=== PATIENT | male | born 1940 | race American Indian/Alaskan Native ===

== ENCOUNTER 2018-10-19 03:02 | Inpatient (IN) | payer MEDICARE ==
[2018-10-19 04:23] LABS: Basophils % (Auto) 0.2 % (0.0-1.8); Hematocrit 33.9 % (35.5-45.6); Hemoglobin 11.3 gm/dl (11.8-15.2); Lymphocytes # (Auto) 0.6 K/mm3 (1.2-5.4); Lymphocytes % (Auto) 10.6 % (13.4-35.0); Mean Corpuscular HGB Conc 33 % (32-34); Mean Corpuscular Volume 94 fl (84-94); Monocytes # (Auto) 0.6 K/mm3 (0.0-0.8); Monocytes % (Auto) 11.7 % (0.0-7.3); Platelet Count 156 K/mm3 (140-440); Red Cell Distribution Width 13.6 % (13.2-15.2)
[2018-10-19 04:32] LABS: INR 1.12 (0.87-1.13)
[2018-10-19 04:36] LABS: Creatine Kinase MB 15.7 ng/mL (0.0-4.0)
[2018-10-19 04:38] LABS: Alanine Aminotransferase 77 units/L (7-56); Albumin 3.3 g/dL (3.9-5); BUN/Creatinine Ratio 29; Blood Urea Nitrogen 35 mg/dL (9-20); Calcium 8.4 mg/dL (8.4-10.2); Hemolysis Index 5
--- NOTE | 2018-10-19 04:42 | Cat Scan Report ---
FINAL REPORT EXAM: CT HEAD/BRAIN WO CON HISTORY: falls x 3 days TECHNIQUE: CT imaging is acquired through the brain without contrast. Transaxial reformations are provided. PRIORS: None. FINDINGS: Ventricles and CSF spaces are proportionately enlarged, consistent with parenchymal atrophy. Scattere d deep and subcortical white matter hypodense foci are confluent in some areas and are compatible wit h microvascular angiopathy. No acute intracranial hemorrhage or mass effect. No skull fracture. No significant abnormality within the imaged paranasal sinuses or mastoid air cell s. IMPRESSION: No acute intracranial abnormality. 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
[2018-10-19] MEDS ORDERED: ASPIRIN PO ONE (04:53)
--- NOTE | 2018-10-19 04:54 | Emergency Department Report ---
ED General Adult HPI - General Chief complaint: Fall Stated complaint: FALL Time Seen by Provider: 10/19/18 04:52 Source: patient, family, EMS Mode of arrival: Stretcher Limitations: Physical Limitation - History of Present Illness Initial comments: Patient's family said the patient has been falling frequently in the last few days. He fell this evening again and they had to call 911 to bring him to the emergency room. -: Sudden Improves with: none Worsens with: none Associated Symptoms: confusion Treatments Prior to Arrival: none - Related Data Allergies Allergy/AdvReac Type Severity Reaction Status Date / Time No Known Allergies Allergy Unverified 10/19/18 03:53 ED Review of Systems ROS: Stated complaint: FALL Other details as noted in HPI Comment: All other systems reviewed and negative Constitutional: denies: chills, fever Eyes: denies: eye pain, eye discharge, vision change ENT: denies: ear pain, throat pain Respiratory: denies: cough, shortness of breath, wheezing Cardiovascular: denies: chest pain, palpitations Endocrine: no symptoms reported Gastrointestinal: denies: abdominal pain, nausea, diarrhea Genitourinary: denies: urgency, dysuria Musculoskeletal: denies: back pain, joint swelling, arthralgia Skin: denies: rash, lesions Neurological: denies: headache, weakness, paresthesias Psychiatric: denies: anxiety, depression Hematological/Lymphatic: denies: easy bleeding, easy bruising ED Past Medical Hx - Past Medical History Previous Medical History?: Yes Hx COPD: Yes Additional medical history: prostate cancer - Surgical History Past Surgical History?: No - Social History Smoking Status: Former Smoker Substance Use Type: None ED Physical Exam - General Limitations: Physical Limitation General appearance: alert, in no apparent distress - Head Head exam: Present: atraumatic, normocephalic - Eye Eye exam: Present: normal appearance - ENT ENT exam: Present: mucous membranes moist - Neck Neck exam: Present: normal inspection - Respiratory Respiratory exam: Present: normal lung sounds bilaterally. Absent: respiratory distress - Cardiovascular Cardiovascular Exam: Present: regular rate, normal rhythm. Absent: systolic murmur, diastolic murmur, rubs, gallop - GI/Abdominal GI/Abdominal exam: Present: soft, normal bowel sounds - Rectal Rectal exam: Present: deferred - Extremities Exam Extremities exam: Present: normal inspection, pedal edema - Back Exam Back exam: Present: normal inspection - Neurological Exam Neurological exam: Present: alert, oriented X3, CN II-XII intact - Psychiatric Psychiatric exam: Present: normal affect, normal mood - Skin Skin exam: Present: warm, dry, intact, normal color. Absent: rash ED Course Vital Signs 10/19/18 10/19/18 10/19/18 03:45 04:00 04:45 Temperature 95.9 F L Pulse Rate 96 H 109 H 103 H Respiratory 32 H 25 H 10 L Rate Blood Pressure 108/75 108/75 135/83 O2 Sat by Pulse 89 99 Oximetry 10/19/18 10/19/18 05:00 05:31 Temperature Pulse Rate 99 H 87 Respiratory 15 20 Rate Blood Pressure 128/80 132/81 O2 Sat by Pulse 98 96 Oximetry - Consultations Consultation #1: 10/19/18 06:09 Dr Sarah Castellon to admit. ED Medical Decision Making - Lab Data Result diagrams: 10/19/18 04:34 10/19/18 04:34 Lab Results 10/19/18 10/19/18 10/19/18 Range/Units 04:34 04:34 04:34 WBC 5.4 (4.5-11.0) K/mm3 RBC 3.60 L (3.65-5.03) M/mm3 Hgb 11.3 L (11.8-15.2) gm/dl Hct 33.9 L (35.5-45.6) % MCV 94 (84-94) fl MCH 31 (28-32) pg MCHC 33 (32-34) % RDW 13.6 (13.2-15.2) % Plt Count 156 (140-440) K/mm3 Lymph % (Auto) 10.6 L (13.4-35.0) % [place] % (Auto) 11.7 H (0.0-7.3) % Eos % (Auto) 0.0 (0.0-4.3) % Baso % (Auto) 0.2 (0.0-1.8) % Lymph # 0.6 L (1.2-5.4) K/mm3 [place] # 0.6 (0.0-0.8) K/mm3 Eos # 0.0 (0.0-0.4) K/mm3 Baso # 0.0 (0.0-0.1) K/mm3 Seg Neutrophils % 77.5 H (40.0-70.0) % Seg Neutrophils # 4.2 (1.8-7.7) K/mm3 PT 14.8 (12.2-14.9) Sec. INR 1.12 (0.87-1.13) APTT 23.0 L (24.2-36.6) Sec. Sodium 126 L (137-145) mmol/L Potassium 4.5 (3.6-5.0) mmol/L Chloride 92.1 L (98-107) mmol/L Carbon Dioxide 20 L (22-30) mmol/L Anion Gap 18 mmol/L BUN 35 H (9-20) mg/dL Creatinine 1.2 (0.8-1.5) mg/dL Estimated GFR > 60 ml/min BUN/Creatinine Ratio 29 % Glucose 95 (75-100) mg/dL Calcium 8.4 (8.4-10.2) mg/dL Total Bilirubin 0.90 (0.1-1.2) mg/dL AST 67 H (5-40) units/L ALT 77 H (7-56) units/L Alkaline Phosphatase 58 (35-129) units/L Total Creatine Kinase 1300 H (55-170) units/L CK-MB (CK-2) 15.7 H (0.0-4.0) ng/mL CK-MB (CK-2) Rel Index 1.2 (0-4) Troponin T 0.175 H* (0.00-0.029) ng/mL Total Protein 5.7 L (6.3-8.2) g/dL Albumin 3.3 L (3.9-5) g/dL Albumin/Globulin Ratio 1.4 % Triglycerides 85 (2-149) mg/dL Cholesterol 156 (50-199) mg/dL LDL Cholesterol Direct 94 (50-130) mg/dL HDL Cholesterol 60 H (40-59) mg/dL Cholesterol/HDL Ratio 2.60 % Urine Color (Yellow) Urine Turbidity (Clear) Urine pH (5.0-7.0) Ur Specific [place] (1.003-1.030) Urine Protein (Negative) mg/dL Urine Glucose (UA) (Negative) mg/dL Urine Ketones (Negative) mg/dL Urine Blood (Negative) Urine Nitrite (Negative) Urine Bilirubin (Negative) Urine Urobilinogen (<2.0) mg/dL Ur Leukocyte Esterase (Negative) Urine WBC (Auto) (0.0-6.0) /HPF Urine RBC (Auto) (0.0-6.0) /HPF Urine Mucus /HPF Urine Opiates Screen Urine Methadone Screen Ur Barbiturates Screen Ur Phencyclidine Scrn Ur Amphetamines Screen U Benzodiazepines Scrn Urine Cocaine Screen U Marijuana (THC) Screen Drugs of Abuse Note 10/19/18 10/19/18 Range/Units Unknown Unknown WBC (4.5-11.0) K/mm3 RBC (3.65-5.03) M/mm3 Hgb (11.8-15.2) gm/dl Hct (35.5-45.6) % MCV (84-94) fl MCH (28-32) pg MCHC (32-34) % RDW (13.2-15.2) % Plt Count (140-440) K/mm3 Lymph % (Auto) (13.4-35.0) % [place] % (Auto) (0.0-7.3) % Eos % (Auto) (0.0-4.3) % Baso % (Auto) (0.0-1.8) % Lymph # (1.2-5.4) K/mm3 [place] # (0.0-0.8) K/mm3 Eos # (0.0-0.4) K/mm3 Baso # (0.0-0.1) K/mm3 Seg Neutrophils % (40.0-70.0) % Seg Neutrophils # (1.8-7.7) K/mm3 PT (12.2-14.9) Sec. INR (0.87-1.13) APTT (24.2-36.6) Sec. Sodium (137-145) mmol/L Potassium (3.6-5.0) mmol/L Chloride (98-107) mmol/L Carbon Dioxide (22-30) mmol/L Anion Gap mmol/L BUN (9-20) mg/dL Creatinine (0.8-1.5) mg/dL Estimated GFR ml/min BUN/Creatinine Ratio % Glucose (75-100) mg/dL Calcium (8.4-10.2) mg/dL Total Bilirubin (0.1-1.2) mg/dL AST (5-40) units/L ALT (7-56) units/L Alkaline Phosphatase (35-129) units/L Total Creatine Kinase (55-170) units/L CK-MB (CK-2) (0.0-4.0) ng/mL CK-MB (CK-2) Rel Index (0-4) Troponin T (0.00-0.029) ng/mL Total Protein (6.3-8.2) g/dL Albumin (3.9-5) g/dL Albumin/Globulin Ratio % Triglycerides (2-149) mg/dL Cholesterol (50-199) mg/dL LDL Cholesterol Direct (50-130) mg/dL HDL Cholesterol (40-59) mg/dL Cholesterol/HDL Ratio % Urine Color Yellow (Yellow) Urine Turbidity Clear (Clear) Urine pH 5.0 (5.0-7.0) Ur Specific [place] 1.025 (1.003-1.030) Urine Protein 30 mg/dl (Negative) mg/dL Urine Glucose (UA) Neg (Negative) mg/dL Urine Ketones Tr (Negative) mg/dL Urine Blood Mod (Negative) Urine Nitrite Neg (Negative) Urine Bilirubin Neg (Negative) Urine Urobilinogen < 2.0 (<2.0) mg/dL Ur Leukocyte Esterase Neg (Negative) Urine WBC (Auto) < 1.0 (0.0-6.0) /HPF Urine RBC (Auto) 2.0 (0.0-6.0) /HPF Urine Mucus Few /HPF Urine Opiates Screen Presumptive negative Urine Methadone Screen Presumptive negative Ur Barbiturates Screen Presumptive negative Ur Phencyclidine Scrn Presumptive negative Ur Amphetamines Screen Presumptive negative U Benzodiazepines Scrn Presumptive negative Urine Cocaine Screen Presumptive negative U Marijuana (THC) Screen Presumptive negative Drugs of Abuse Note Disclamer - EKG Data -: EKG Interpreted by [place] EKG shows normal: sinus rhythm Rate: normal (98) - EKG Data When compared to previous EKG there are: previous EKG unavailable Interpretation: nonspecific ST-T wave robin, LVH 10/19/18 05:56 Prolonged QT, No STEMI. - Radiology Data Radiology results: report reviewed, image reviewed CT head showed no acute findings. CXR showed RLL infiltrate. Critical Care Time: Yes Critical care time in (mins) excluding proc time.: 45 Critical care attestation.: If time is entered above; I have spent that time in minutes in the direct care of this critically ill patient, excluding procedure time. ED Disposition Clinical Impression: Hyponatremia, NSTEMI (non-ST elevated myocardial infarction), Elevated troponin I level, Cardiomegaly RLL pneumonia Qualifiers: Pneumonia type: due to unspecified organism Qualified Code(s): J18.1 - Lobar pneumonia, unspecified organism Fall Qualifiers: Encounter type: initial encounter Qualified Code(s): W19.XXXA - Unspecified fall, initial encounter CHF (congestive heart failure) Qualifiers: Heart failure type: unspecified Heart failure chronicity: unspecified Qualified Code(s): I50.9 - Heart failure, unspecified Disposition: DC-09 OP ADMIT IP TO THIS HOSP Is pt being admited?: Yes Does the pt Need Aspirin: Yes Condition: Stable Instructions: Bacterial Pneumonia (ED) Referrals: PRIMARY CARE, [Primary Care Provider] - 3-5 Days Time of Disposition: 06:00
[2018-10-19 04:59] LABS: HDL Cholesterol 60 mg/dL (40-59); LDL Cholesterol,Direct 94 mg/dL (50-130)
--- NOTE | 2018-10-19 05:00 | XRay Report ---
FINAL REPORT EXAM: XR CHEST 1V AP HISTORY: Falls x 3 days TECHNIQUE: AP portable view(s) of the chest obtained. PRIORS: None. FINDINGS: No mediastinal shift. Cardiomegaly. No pneumothorax. Blunting of the right costophrenic angle and ill -defined right basilar opacity. No acute skeletal finding. IMPRESSION: Blunting of the right costophrenic angle and ill-defined right basilar opacity may be due to infectio n, atelectasis or scarring. Correlation with any prior imaging is requested. Follow-up is recommended . No displaced fracture.
[2018-10-19 05:08] LABS: Bilirubin,Urine NEG (Negative); Blood,Urine MOD (Negative); Color,Urine Yellow (Yellow); Mucus,Urine FEW /HPF; Urobilinogen,Urine < 2.0 mg/dL (<2.0); WBC,Urine < 1.0 /HPF (0.0-6.0)
[2018-10-19 05:17] LABS: Amphetamine Screen,Urine PRESUMPTIVE NEGATIVE; Benzodiazepines Screen,Urine PRESUMPTIVE NEGATIVE; Cannabinoid Screen,Urine PRESUMPTIVE NEGATIVE; Cocaine Screen,Urine PRESUMPTIVE NEGATIVE; Methadone Screen,Urine PRESUMPTIVE NEGATIVE; Opiate Screen,Urine PRESUMPTIVE NEGATIVE
[2018-10-19] MEDS ORDERED: NACL 0.9% 1000 ML 1,000 ML IV ONE (05:58)
[2018-10-19] MEDS ORDERED: ROCEPHIN/NS 1 GM/50 ML 1 GM/50 ML BAG IV ONE (06:08)
[2018-10-19] MEDS ORDERED: ZITHROMAX 500 MG in NACL 0.9% 250ML 250 ML IV ONE (06:08)
--- NOTE | 2018-10-19 09:06 | History and Physical Report ---
History of Present Illness Date of examination: 10/19/18 Date of admission: 10/19/18 06:43 Chief complaint: Frequent Falls,Gen weakness and shortness of breath History of present illness: 78-year-old male patient with significant past medical history of COPD , prostate cancer, BPH, mal nourishment,gen weakness,recurrent falls at home. No history of loss of consciousness , complaints of shortness of breath and mild cough and generalized weakness Patient is minimally ambulatory at home, with recurrent falls Initial workup is consistent with pneumonia and possible aspiration, rhabdomyolysis and elevated troponins History of prostate cancer, details of which are unknown No other history available Past History Past Medical History: COPD, hypertension, other (BPH) Past Surgical History: No surgical history Social history: lives with family, full code. denies: smoking, alcohol abuse Family history: hypertension Medications and Allergies Allergies Allergy/AdvReac Type Severity Reaction Status Date / Time No Known Allergies Allergy Unverified 10/19/18 03:53 Home Medications Medication Instructions Recorded Confirmed Last Taken Type Finasteride [Proscar] 5 mg PO QDAY 10/19/18 10/19/18 Unknown History Ipratropium/Albuterol Sulfate 1 vial IH Q8HR 10/19/18 10/19/18 Unknown History [DUONEB *Not for PRN Use*] Megestrol [Megace] 625 mg PO DAILY 10/19/18 10/19/18 Unknown History Tamsulosin HCl 0.4 mg PO BID 10/19/18 10/19/18 Unknown History VENTOLIN Inhaler(NF) 90 mcg IH Q6HR PRN 10/19/18 10/19/18 Unknown History Review of Systems Constitutional: fatigue, weakness, malaise Ears, nose, mouth and throat: no nasal congestion, no nasal discharge Cardiovascular: lightheadedness, shortness of breath, no chest pain, no orthopnea, no palpitations Respiratory: shortness of breath, no excessive sputum Gastrointestinal: no abdominal pain, no nausea, no vomiting Genitourinary Male: no dysuria, no hematuria Musculoskeletal: muscle weakness, gait dysfunction, frequent falls, no myalgias, no arthritis Integumentary: no rash, no lesions Neurological: weakness, syncope Psychiatric: no anxiety, no depression Endocrine: no cold intolerance, no heat intolerance, no polydipsia, no polyuria Hematologic/Lymphatic: no easy bruising, no easy bleeding Allergic/Immunologic: no urticaria, no allergic rhinitis Exam - Constitutional Vitals: Temp Pulse Resp BP Pulse Ox 95.9 F L 93 H 15 140/94 97 10/19/18 03:45 10/19/18 07:30 10/19/18 07:30 10/19/18 07:30 10/19/18 07:30 General appearance: Present: mild distress, cachectic, disheveled - EENT Eyes: Present: PERRL, EOM intact - Neck Neck: Present: supple, normal ROM - Respiratory Respiratory effort: normal Respiratory: right: rhonchi, bilateral: diminished, negative: rales, wheezing - Cardiovascular Rhythm: regular Heart Sounds: Present: S1 & S2 - Extremities Extremities: no ischemia Extremity abnormal: edema - Abdominal General gastrointestinal: Present: soft, non-tender, non-distended, normal bowel sounds - Integumentary Integumentary: Present: clear, warm - Musculoskeletal Musculoskeletal: strength equal bilaterally, generalized weakness - Psychiatric Psychiatric: appropriate mood/affect, cooperative - Neurologic Neurologic: moves all extremities, other Results - Labs CBC & Chem 7: 10/19/18 19:57 10/19/18 04:34 Labs: Abnormal lab results 10/19/18 10/19/18 10/19/18 Range/Units 04:34 04:34 04:34 RBC 3.60 L (3.65-5.03) M/mm3 Hgb 11.3 L (11.8-15.2) gm/dl Hct 33.9 L (35.5-45.6) % Lymph % (Auto) 10.6 L (13.4-35.0) % [place] % (Auto) 11.7 H (0.0-7.3) % Lymph # 0.6 L (1.2-5.4) K/mm3 Seg Neutrophils % 77.5 H (40.0-70.0) % APTT 23.0 L (24.2-36.6) Sec. Sodium 126 L (137-145) mmol/L Chloride 92.1 L (98-107) mmol/L Carbon Dioxide 20 L (22-30) mmol/L BUN 35 H (9-20) mg/dL AST 67 H (5-40) units/L ALT 77 H (7-56) units/L Total Creatine Kinase 1300 H (55-170) units/L CK-MB (CK-2) 15.7 H (0.0-4.0) ng/mL Troponin T 0.175 H* (0.00-0.029) ng/mL Total Protein 5.7 L (6.3-8.2) g/dL Albumin 3.3 L (3.9-5) g/dL HDL Cholesterol 60 H (40-59) mg/dL Assessment and Plan - Patient Problems (1) NSTEMI (non-ST elevated myocardial infarction) Onset Date: ~10/19/18 Current Visit: Yes Status: Acute Plan to address problem: Nonspecific, probably sec to Rhabdomyolysis Serial cardiac enzymes,ECHO,cardiology consult (2) Hyponatremia Current Visit: Yes Status: Acute Plan to address problem: NS replacement therapy,closely monitor electrolytes (3) RLL pneumonia Current Visit: Yes Status: Acute Qualifiers: Pneumonia type: due to unspecified organism Qualified Code(s): J18.1 - Lobar pneumonia, unspecified organism Plan to address problem: Possible aspiration pneumonia, oxygen IV antibiotics and follow cultures Supportive care (4) Severe malnutrition Current Visit: Yes Status: Acute Plan to address problem: Nutrition supplements, and nutrition consult (5) Rhabdomyolysis Current Visit: Yes Status: Acute Plan to address problem: Probably secondary to fall and gentle IV hydration closely monitor renal function and avoid nephrotoxins Preserved renal function, (6) Thrombocytopenia Current Visit: Yes Status: Acute Plan to address problem: Probably secondary to history of prostate cancer, closely monitor (7) Recurrent falls Current Visit: Yes Status: Acute Plan to address problem: Fall precautions, physical therapy occupational therapy rehabilitation (8) Discharge planning issues Current Visit: Yes Status: Acute Plan to address problem: Possible acute versus subacute versus SNF placement when medically stable (9) DVT prophylaxis Current Visit: Yes Status: Acute Plan to address problem: Lovenox[closely monitor platelets] Disposition; possible SNF/senior care/rehabilitation placement when medically stable Plan of care reviewed with the patient and his family member
[2018-10-19] MEDS ORDERED: NON-FORMULARY (Tamsulosin Hcl 0.4 MG) PO SCH (10:00)
[2018-10-19] MEDS ORDERED: NACL 0.9% 1000 ML 1,000 ML IV SCH (11:00)
[2018-10-19] MEDS ORDERED: ZESTRIL PO SCH (11:00)
--- NOTE | 2018-10-19 11:30 | Consultation ---
History of Present Illness Consult date: 10/18/18 Past History Past Medical History: COPD, hypertension, other (BPH) Past Surgical History: No surgical history Social history: lives with family, full code. denies: smoking, alcohol abuse Family history: hypertension Medications and Allergies Allergies Allergy/AdvReac Type Severity Reaction Status Date / Time No Known Allergies Allergy Unverified 10/19/18 03:53 Home Medications Medication Instructions Recorded Confirmed Last Taken Type Finasteride [Proscar] 5 mg PO QDAY 10/19/18 10/19/18 Unknown History Ipratropium/Albuterol Sulfate 1 vial IH Q8HR 10/19/18 10/19/18 Unknown History [DUONEB *Not for PRN Use*] Megestrol [Megace] 625 mg PO DAILY 10/19/18 10/19/18 Unknown History Tamsulosin HCl 0.4 mg PO BID 10/19/18 10/19/18 Unknown History VENTOLIN Inhaler(NF) 90 mcg IH Q6HR PRN 10/19/18 10/19/18 Unknown History Active Meds: Active Medications Albuterol (Proventil) 2.5 mg IH Q4HRT PRN PRN Reason: Shortness Of Breath Albuterol/Ipratropium (Duoneb *Not For Prn Use*) 1 ampul IH Q8HR [facility] Aspirin (Aspirin) 325 mg PO QDAY RONNY Enoxaparin Sodium (Lovenox) 40 mg SUB-Q QDAY@2200 RONNY Finasteride (Proscar) 5 mg PO QDAY [facility] Ampicillin Sodium/Sulbactam Sodium (Unasyn/Ns 1.5 Gm/50 Ml) 1.5 gm in 50 mls @ 100 mls/hr IV Q6HR RONNY; Protocol Metronidazole (Flagyl 500 Mg/100 Ml) 500 mg in 100 mls @ 100 mls/hr IV Q8HR RONNY; Protocol Sodium Chloride (Nacl 0.9% 1000 Ml) 1,000 mls @ 70 mls/hr IV DIRECT RONNY Lisinopril (Zestril) 20 mg PO QDAY [facility] Megestrol Acetate (Megace) 625 mg PO DAILY [facility] Metoprolol Tartrate (Lopressor) 12.5 mg PO BID [facility] Miscellaneous Medication (Tamsulosin Hcl) 0.4 mg PO BID [facility] Physical Examination Vital Signs Temp Pulse Resp BP Pulse Ox 95.9 F L 96 H 32 H 108/75 89 10/19/18 03:45 10/19/18 03:45 10/19/18 03:45 10/19/18 03:45 10/19/18 03:45 Results 10/19/18 04:34 10/19/18 04:34 Cardiac Enzymes 10/19/18 Range/Units 04:34 AST 67 H (5-40) units/L CK-MB (CK-2) 15.7 H (0.0-4.0) ng/mL Coagulation 10/19/18 Range/Units 04:34 PT 14.8 (12.2-14.9) Sec. INR 1.12 (0.87-1.13) APTT 23.0 L (24.2-36.6) Sec. Lipids 10/19/18 Range/Units 04:34 Triglycerides 85 (2-149) mg/dL Cholesterol 156 (50-199) mg/dL HDL Cholesterol 60 H (40-59) mg/dL Cholesterol/HDL Ratio 2.60 % CBC 10/19/18 Range/Units 04:34 WBC 5.4 (4.5-11.0) K/mm3 RBC 3.60 L (3.65-5.03) M/mm3 Hgb 11.3 L (11.8-15.2) gm/dl Hct 33.9 L (35.5-45.6) % Plt Count 156 (140-440) K/mm3 Lymph # 0.6 L (1.2-5.4) K/mm3 [place] # 0.6 (0.0-0.8) K/mm3 Eos # 0.0 (0.0-0.4) K/mm3 Baso # 0.0 (0.0-0.1) K/mm3 Comprehensive Metabolic Panel 10/19/18 Range/Units 04:34 Sodium 126 L (137-145) mmol/L Potassium 4.5 (3.6-5.0) mmol/L Chloride 92.1 L (98-107) mmol/L Carbon Dioxide 20 L (22-30) mmol/L BUN 35 H (9-20) mg/dL Creatinine 1.2 (0.8-1.5) mg/dL Glucose 95 (75-100) mg/dL Calcium 8.4 (8.4-10.2) mg/dL AST 67 H (5-40) units/L ALT 77 H (7-56) units/L Alkaline Phosphatase 58 (35-129) units/L Total Protein 5.7 L (6.3-8.2) g/dL Albumin 3.3 L (3.9-5) g/dL Assessment and Plan Detailed Cardiology consult dictated.
[2018-10-19] MEDS: PROSCAR PO SCH (12:23)
[2018-10-19] MEDS ORDERED: DUONEB *Not for PRN Use IH SCH (14:00)
[2018-10-19 14:33] LABS: Creatine Kinase MB 10.6 ng/mL (0.0-4.0)
[2018-10-19] MEDS: UNASYN/NS 1.5 GM/50 ML 1.5 GM/50 ML BAG IV SCH (15:32)
[2018-10-19] MEDS: FLAGYL 500 MG/100 ML 500 MG/100 ML BAG IV SCH ×2 (15:33→21:54)
[2018-10-19] MEDS: MEGACE PO SCH (15:33)
[2018-10-19] MEDS: LOPRESSOR PO SCH ×2 (15:45→22:04)
[2018-10-19] MEDS: FLOMAX PO SCH ×2 (17:46→22:03)
[2018-10-19 19:01] LABS: Creatine Kinase MB 8.7 ng/mL (0.0-4.0)
[2018-10-19] MEDS ORDERED: HEPARIN 10,000 UNITS/10 ML IV ONE (19:42)
[2018-10-19] MEDS ORDERED: HEPARIN/ 0.45% NACL-25,000 UNIT/500 ML 25,000 UNIT/500 ML BAG IV SCH (20:00)
[2018-10-19] MEDS: BROVANA NEBU IH SCH (20:34)
[2018-10-19] MEDS: DUONEB *Not for PRN Use IH SCH (20:34)
[2018-10-19] MEDS: PULMICORT IH SCH (20:34)
[2018-10-19 20:43] LABS: INR 1.24 (0.87-1.13)
[2018-10-19 20:44] LABS: Partial Thromboplastin Time 25.8 Sec. (24.2-36.6)
[2018-10-19 21:05] LABS: Hematocrit 31.2 % (35.5-45.6); Hemoglobin 10.6 gm/dl (11.8-15.2)
--- NOTE | 2018-10-19 21:34 | Consultation ---
CARDIOLOGY CONSULTATION REFERRING PHYSICIAN: Maryuri Ambrosio MD, hospitalist. The patient was seen on 10/19/2018 at 11:20 a.m. HISTORY OF PRESENT ILLNESS: This is a 78-year-old thin built, ill-nourished, pleasant -[place] gentleman with a history of chronic obstructive pulmonary disease, who was admitted with recurrent falls. As per the family, he has had weakness of both lower extremities for the past several months and he has consulted a neurologist for the same. The followup Neurology evaluation is pending at this time. The patient had frequent falls for the past 6 days. Yesterday, he fell 4 times and the day before he fell 3 times. It is not clear whether he lost consciousness. No history of hypertension or diabetes mellitus. No history of hyperlipidemia. The patient did not have any chest pain. However, he had some shortness of breath. His chest x-ray revealed right lower lobe pneumonia and he is being treated for the same. He is also on bronchodilators. His CPK is increased (1300) with MB of 16 and a negative CK-MB index. Serum troponin was mildly increased at 0.175. Follow up troponins are pending at this time. He has hyponatremia with sodium level of 126. PAST MEDICAL HISTORY: History of multiple medical problems as described above. No history of CAD or myocardial infarction in the past. He was diagnosed as having carcinoma of the prostate 3 years ago and as per his sister, he did not undergo any procedures subsequently. He is on Proscar. He also has history of chronic kidney disease. No history of thyroid problems. ADDENDUM: His blood cultures are pending at this time. SOCIAL HISTORY: He was a chronic heavy smoker. He has at least 30-pack years of smoking in the past. He quit smoking 10 years ago, used to take alcohol occasionally in the past. No history of drug abuse. FAMILY HISTORY: Negative for premature coronary artery disease. MEDICATIONS: DuoNeb inhalation every 8 hours, IV Unasyn 1.5 grams every 6 hours, aspirin 325 mg p.o. daily, enoxaparin 40 mg subcutaneously daily, Proscar 5 mg p.o. daily, lisinopril 20 mg p.o. daily, metoprolol 12.5 mg p.o. b.i.d. REVIEW OF SYSTEMS: CARDIOVASCULAR: As described in the history. PULMONARY: As described in the history. GENITOURINARY: As described in the history. NEUROLOGICAL: As described in the history. Review of rest of the 10 systems is negative. PHYSICAL EXAMINATION: GENERAL: A 78-year-old thin built, ill-nourished, pleasant -[place] gentleman. VITAL SIGNS: He is afebrile, pulse 107 per minute, blood pressure 117/78 mmHg, respirations 24 per minute. NEUROLOGIC: He is alert and oriented x 3. HEENT: Negative. NECK: Supple, no JVD, no bruit, no thyromegaly. HEART: PMI slightly shifted laterally and is forcible in nature, no palpable thrills. Auscultation of the heart reveals S1, S2 heard, loud S2. Grade 2/6 soft systolic murmur is heard all over the precardium. No rub. EXTREMITIES: Peripheral pulses felt. He has 1-2+ bilateral pitting edema. Chronic skin changes of both lower extremities (dry skin). LUNGS: Decreased air entry over the right base. No bronchial breathing, no wheezing. ABDOMEN: Soft, benign. No organomegaly. SKIN: As described above. BONE AND JOINTS: As described above. LABORATORY DATA: EKG mild sinus tachycardia, left atrial enlargement. QS in V1, V2 could be due to LVH. Chest x-ray, right basal pneumonia, cardiomegaly. Hemoglobin and hematocrit 11.3 and 33.9. WBC, platelet count within normal limits. Sodium 126, BUN 35, creatinine 1.2, potassium 4.5, chloride 92, CO2 is 20. AST and ALT mildly increased (67 and 77 respectively), LDL is 94, HDL 60, triglycerides normal. IMPRESSION: 1. Frequent falls. 2. Mild increase in troponins, acute myocardial infarction is unlikely, most likely secondary to mild rhabdomyolysis and also chronic kidney disease. 3. Chronic obstructive pulmonary disease. 4. Right lower lobe pneumonia. 5. Severe malnutrition/general debility. 6. Weakness of both lower extremities, possible neuropathy. 7. Hyponatremia. RECOMMENDATIONS: 1. To continue present management. 2. Treatment of pneumonia as you are doing. 3. Nutritional evaluation. 4. We will order an echocardiogram (to assess chamber dimensions and ventricular function) and it will be followed up. Thank you again, we will follow you. Yours Sincerely, JOB# [id number] [facility]
[2018-10-19] MEDS: HEPARIN/ 0.45% NACL-25,000 UNIT/500 ML 25,000 UNIT/500 ML BAG IV SCH (21:54)
[2018-10-19] MEDS ORDERED: LOVENOX SUB-Q SCH (22:00)
[2018-10-19] MEDS ORDERED: MAGNESIUM SULFATE 2GM/50ML 2 GM/50 ML BAG IV ONE (23:00)
[2018-10-19] MEDS ORDERED: LOPRESSOR PO ONE (23:00)
[2018-10-20] MEDS: UNASYN/NS 1.5 GM/50 ML 1.5 GM/50 ML BAG IV SCH ×6 (00:04→23:55)
[2018-10-20 05:22] LABS: Basophils % (Auto) 0.1 % (0.0-1.8); Eosinophils % (Auto) 0.3 % (0.0-4.3); Hematocrit 30.9 % (35.5-45.6); Hemoglobin 10.4 gm/dl (11.8-15.2); Lymphocytes # (Auto) 0.7 K/mm3 (1.2-5.4); Lymphocytes % (Auto) 14.8 % (13.4-35.0); Mean Corpuscular HGB Conc 34 % (32-34); Mean Corpuscular Volume 94 fl (84-94); Monocytes # (Auto) 0.6 K/mm3 (0.0-0.8); Platelet Count 178 K/mm3 (140-440); Red Cell Distribution Width 13.7 % (13.2-15.2)
[2018-10-20 05:35] LABS: Alanine Aminotransferase 57 units/L (7-56); Albumin 2.7 g/dL (3.9-5); BUN/Creatinine Ratio 28; Blood Urea Nitrogen 25 mg/dL (9-20); Calcium 7.6 mg/dL (8.4-10.2); Hemolysis Index 27
[2018-10-20] MEDS: FLAGYL 500 MG/100 ML 500 MG/100 ML BAG IV SCH ×3 (05:57→22:26)
[2018-10-20] MEDS: PULMICORT IH SCH ×2 (09:19→21:02)
[2018-10-20] MEDS: DUONEB *Not for PRN Use IH SCH ×3 (09:20→21:02)
[2018-10-20] MEDS: BROVANA NEBU IH SCH ×2 (09:20→21:02)
[2018-10-20] MEDS ORDERED: ZITHROMAX 500 MG in NACL 0.9% 250ML 250 ML IV SCH (10:00)
[2018-10-20] MEDS: ZESTRIL PO SCH (11:30)
[2018-10-20] MEDS: LOPRESSOR PO SCH ×2 (11:30→23:49)
[2018-10-20] MEDS: MEGACE PO SCH (11:30)
[2018-10-20] MEDS: FLOMAX PO SCH ×2 (11:30→22:26)
[2018-10-20] MEDS: ASPIRIN PO SCH (11:30)
--- NOTE | 2018-10-20 11:48 | Progress Note ---
Addendum entered and electronically signed by FELI CAPPS MD 10/20/18 13:40: To add aldactone 25 mg PO daily. Original Note: Assessment and Plan Echo reviewed - EF 15-20%, LV mod to severely dilated, restrictive diastolic filling, mild to mod MR, mild dilatation of the ascending aorta. Troponin elevation appears consistent with NSTEMI type II. Pt denies chest pain, ECG with NAF. Cont heparin gtt x 48Hr and optimize anti-ischemic regimen. Repeat ECG in AM. Pt does not appear to be a candidate for invasive cardiac testing at this time due to multiple co-morbidities. Will continue with medical management at this time. No current clinical evidence Pt noted to have multiple bouts of NSVT overnight, longest bout being 21 beats. Pt asymptomatic. Cont BB. Obtain serum Mg and thyroid profile. The patient has been seen in conjunction with Dr. Bo who agrees with the assessment and plan of care. - Patient Problems (1) Recurrent falls Current Visit: Yes Status: Acute (2) NSTEMI (non-ST elevated myocardial infarction) Onset Date: ~10/19/18 Current Visit: Yes Status: Acute (3) Cardiomyopathy Current Visit: Yes Status: Chronic (4) Pneumonia Current Visit: Yes Status: Acute (5) COPD (chronic obstructive pulmonary disease) Current Visit: Yes Status: Chronic (6) Weakness of both lower extremities Current Visit: Yes Status: Acute (7) Severe malnutrition Current Visit: Yes Status: Acute (8) CKD (chronic kidney disease) Current Visit: Yes Status: Chronic (9) Hyponatremia Current Visit: Yes Status: Acute (10) Rhabdomyolysis Current Visit: Yes Status: Acute (11) NSVT (nonsustained ventricular tachycardia) Current Visit: Yes Status: Acute Subjective Date of service: 10/20/18 Principal diagnosis: frequent falls Interval history: pt resting in bed, no current cardiac complaints. tele reviewed - pt in SR with multiple bouts of NSVT overnight, longest bout being 21 beats. Pt asymptomatic. Objective Last Vital Signs Temp 97.8 F 10/20/18 08:41 Pulse 89 10/20/18 09:21 Resp 17 10/20/18 09:21 BP 123/88 10/20/18 08:41 Pulse Ox 100 10/20/18 08:41 - Physical Examination General: No Apparent Distress, Cachectic HEENT: Positive: PERRL, Normocephaly, Mucus Membranes Moist Neck: Positive: neck supple, trachea midline Cardiac: Positive: Reg Rate and Rhythm, S1/S2 Lungs: Positive: clear to auscultation Neuro: Positive: Grossly Intact Abdomen: Positive: Soft. Negative: Tender Skin: Negative: Rash, Wound Musculoskeletal: No Pain Extremities: Absent: edema - Labs and Meds Cardiac Enzymes 10/19/18 10/19/18 10/20/18 Range/Units 13:45 18:23 04:54 AST 41 H (5-40) units/L CK-MB (CK-2) 10.6 H 8.7 H (0.0-4.0) ng/mL Coagulation 10/19/18 Range/Units 19:57 PT 16.0 H (12.2-14.9) Sec. INR 1.24 H (0.87-1.13) APTT 25.8 (24.2-36.6) Sec. CBC 10/19/18 10/20/18 Range/Units 19:57 04:54 WBC 4.9 (4.5-11.0) K/mm3 RBC 3.30 L (3.65-5.03) M/mm3 Hgb 10.6 L 10.4 L (11.8-15.2) gm/dl Hct 31.2 L 30.9 L (35.5-45.6) % Plt Count 169 178 (140-440) K/mm3 Lymph # 0.7 L (1.2-5.4) K/mm3 [place] # 0.6 (0.0-0.8) K/mm3 Eos # 0.0 (0.0-0.4) K/mm3 Baso # 0.0 (0.0-0.1) K/mm3 Comprehensive Metabolic Panel 10/20/18 Range/Units 04:54 Sodium 127 L (137-145) mmol/L Potassium 4.2 (3.6-5.0) mmol/L Chloride 97.7 L (98-107) mmol/L Carbon Dioxide 21 L (22-30) mmol/L BUN 25 H (9-20) mg/dL Creatinine 0.9 (0.8-1.5) mg/dL Glucose 102 H (75-100) mg/dL Calcium 7.6 L (8.4-10.2) mg/dL AST 41 H (5-40) units/L ALT 57 H (7-56) units/L Alkaline Phosphatase 44 (35-129) units/L Total Protein 4.8 L (6.3-8.2) g/dL Albumin 2.7 L (3.9-5) g/dL - Imaging and Cardiology EKG: report reviewed, image reviewed Echo: report reviewed - Telemetry EKG Rhythm: Sinus Rhythm
--- NOTE | 2018-10-20 15:32 | Progress Note ---
Assessment and Plan / NSTEMI (non-ST elevated myocardial infarction) Likely due to new onset CHF, cardiology consulted 2-D echo showed EF of 10-15%, continue aspirin and statin, started on Lasix /New onset CHF with EF 10-15% - We'll follow cardiology recommendation - Continue diuresis, supplemental oxygen, supportive care /Hyponatremia closely monitor electrolytes, stop IV / RLL pneumonia Possible aspiration pneumonia, continue oxygen, IV antibiotics and follow cultures Supportive care /Severe malnutrition Nutrition supplements, and nutrition consulted / Rhabdomyolysis Probably secondary to fall and status post gentle IV hydration, closely monitor renal function and avoid nephrotoxins / Thrombocytopenia Probably secondary to history of prostate cancer, closely monitor /Recurrent falls Fall precautions, physical therapy occupational therapy rehabilitation / Discharge planning issues Possible acute versus subacute versus SNF placement when medically stable / DVT prophylaxis Lovenox[closely monitor platelets] Physical exam: General appearance: Present: mild distress, cachectic, disheveled - EENT Eyes: Present: PERRL, EOM intact - Neck Neck: Present: supple, normal ROM - Respiratory Respiratory effort: normal Respiratory: right: rhonchi, bilateral: diminished, negative: rales, wheezing - Cardiovascular Rhythm: regular Heart Sounds: Present: S1 & S2 - Extremities Extremities: no ischemia Extremity abnormal: edema - Abdominal General gastrointestinal: Present: soft, non-tender, non-distended, normal bowel sounds - Integumentary Integumentary: Present: clear, warm - Musculoskeletal Musculoskeletal: strength equal bilaterally, generalized weakness - Psychiatric Psychiatric: appropriate mood/affect, cooperative - Neurologic Neurologic: moves all extremities, other Subjective Date of service: 10/20/18 Principal diagnosis: frequent falls Interval history: Patient seen and examined. Medical records and medication list reviewed. No acute event overnight noted by the RN. Patient complains of difficulty breathing even on rest. Patient is tolerating diet. Discussed plan of care at bedside with patient. Objective - Constitutional Vitals: Vital Signs - 12hr 10/20/18 10/20/18 10/20/18 08:00 08:41 09:21 Temperature 97.8 F Pulse Rate 69 Pulse Rate [ 89 89 Bilateral] Respiratory 18 Rate Respiratory 18 17 Rate [Bilateral ] Blood Pressure 123/88 Blood Pressure [Right] O2 Sat by Pulse 100 Oximetry 10/20/18 12:39 Temperature 98.2 F Pulse Rate 87 Pulse Rate [ Bilateral] Respiratory 20 Rate Respiratory Rate [Bilateral ] Blood Pressure Blood Pressure 127/68 [Right] O2 Sat by Pulse 96 Oximetry - Labs CBC & Chem 7: 10/22/18 04:40 10/22/18 04:40 Labs: Abnormal lab results 10/19/18 10/19/18 10/19/18 Range/Units 18:23 19:57 19:57 RBC (3.65-5.03) M/mm3 Hgb 10.6 L (11.8-15.2) gm/dl Hct 31.2 L (35.5-45.6) % [place] % (Auto) (0.0-7.3) % Lymph # (1.2-5.4) K/mm3 Seg Neutrophils % (40.0-70.0) % PT 16.0 H (12.2-14.9) Sec. INR 1.24 H (0.87-1.13) Heparin Anti-Xa Level (0.3-0.7) U.I./ml Sodium (137-145) mmol/L Chloride (98-107) mmol/L Carbon Dioxide (22-30) mmol/L BUN (9-20) mg/dL Glucose (75-100) mg/dL POC Glucose (70-105) Calcium (8.4-10.2) mg/dL Magnesium (1.7-2.3) mg/dL AST (5-40) units/L ALT (7-56) units/L Total Creatine Kinase 707 H (55-170) units/L CK-MB (CK-2) 8.7 H (0.0-4.0) ng/mL Troponin T 0.198 H* (0.00-0.029) ng/mL Total Protein (6.3-8.2) g/dL Albumin (3.9-5) g/dL Free T4 (0.76-1.46) ng/dL 10/20/18 10/20/18 10/20/18 Range/Units 04:54 04:54 04:54 RBC 3.30 L (3.65-5.03) M/mm3 Hgb 10.4 L (11.8-15.2) gm/dl Hct 30.9 L (35.5-45.6) % [place] % (Auto) 12.0 H (0.0-7.3) % Lymph # 0.7 L (1.2-5.4) K/mm3 Seg Neutrophils % 72.8 H (40.0-70.0) % PT (12.2-14.9) Sec. INR (0.87-1.13) Heparin Anti-Xa Level 0.16 L (0.3-0.7) U.I./ml Sodium 127 L (137-145) mmol/L Chloride 97.7 L (98-107) mmol/L Carbon Dioxide 21 L (22-30) mmol/L BUN 25 H (9-20) mg/dL Glucose 102 H (75-100) mg/dL POC Glucose (70-105) Calcium 7.6 L (8.4-10.2) mg/dL Magnesium (1.7-2.3) mg/dL AST 41 H (5-40) units/L ALT 57 H (7-56) units/L Total Creatine Kinase 520 H (55-170) units/L CK-MB (CK-2) (0.0-4.0) ng/mL Troponin T (0.00-0.029) ng/mL Total Protein 4.8 L (6.3-8.2) g/dL Albumin 2.7 L (3.9-5) g/dL Free T4 (0.76-1.46) ng/dL 10/20/18 10/20/18 10/20/18 Range/Units 06:38 13:07 13:07 RBC (3.65-5.03) M/mm3 Hgb (11.8-15.2) gm/dl Hct (35.5-45.6) % [place] % (Auto) (0.0-7.3) % Lymph # (1.2-5.4) K/mm3 Seg Neutrophils % (40.0-70.0) % PT (12.2-14.9) Sec. INR (0.87-1.13) Heparin Anti-Xa Level 0.27 L (0.3-0.7) U.I./ml Sodium (137-145) mmol/L Chloride (98-107) mmol/L Carbon Dioxide (22-30) mmol/L BUN (9-20) mg/dL Glucose (75-100) mg/dL POC Glucose 145 H (70-105) Calcium (8.4-10.2) mg/dL Magnesium 2.40 H (1.7-2.3) mg/dL AST (5-40) units/L ALT (7-56) units/L Total Creatine Kinase (55-170) units/L CK-MB (CK-2) (0.0-4.0) ng/mL Troponin T (0.00-0.029) ng/mL Total Protein (6.3-8.2) g/dL Albumin (3.9-5) g/dL Free T4 (0.76-1.46) ng/dL 10/20/18 Range/Units 13:07 RBC (3.65-5.03) M/mm3 Hgb (11.8-15.2) gm/dl Hct (35.5-45.6) % [place] % (Auto) (0.0-7.3) % Lymph # (1.2-5.4) K/mm3 Seg Neutrophils % (40.0-70.0) % PT (12.2-14.9) Sec. INR (0.87-1.13) Heparin Anti-Xa Level (0.3-0.7) U.I./ml Sodium (137-145) mmol/L Chloride (98-107) mmol/L Carbon Dioxide (22-30) mmol/L BUN (9-20) mg/dL Glucose (75-100) mg/dL POC Glucose (70-105) Calcium (8.4-10.2) mg/dL Magnesium (1.7-2.3) mg/dL AST (5-40) units/L ALT (7-56) units/L Total Creatine Kinase (55-170) units/L CK-MB (CK-2) (0.0-4.0) ng/mL Troponin T (0.00-0.029) ng/mL Total Protein (6.3-8.2) g/dL Albumin (3.9-5) g/dL Free T4 1.68 H (0.76-1.46) ng/dL
[2018-10-20] MEDS: PROVENTIL IH PRN (17:00)
[2018-10-20] MEDS: PROSCAR PO SCH (18:16)
[2018-10-20] MEDS: ALDACTONE PO SCH (18:36)
[2018-10-21] MEDS: DUONEB *Not for PRN Use IH SCH ×4 (01:56→22:03)
[2018-10-21] MEDS: HEPARIN/ 0.45% NACL-25,000 UNIT/500 ML 25,000 UNIT/500 ML BAG IV SCH (04:00)
[2018-10-21 04:25] LABS: Hematocrit 28.7 % (35.5-45.6); Hemoglobin 9.6 gm/dl (11.8-15.2)
[2018-10-21] MEDS: UNASYN/NS 1.5 GM/50 ML 1.5 GM/50 ML BAG IV SCH ×4 (05:54→23:43)
[2018-10-21] MEDS: FLAGYL 500 MG/100 ML 500 MG/100 ML BAG IV SCH ×2 (05:54→20:44)
[2018-10-21] MEDS: TYLENOL PO PRN ×2 (06:52→09:00)
[2018-10-21] MEDS: PULMICORT IH SCH ×2 (08:33→22:03)
[2018-10-21] MEDS: BROVANA NEBU IH SCH ×2 (08:33→22:03)
[2018-10-21] MEDS: FLOMAX PO SCH ×2 (10:48→21:58)
[2018-10-21] MEDS: LOPRESSOR PO SCH ×2 (10:48→21:58)
[2018-10-21] MEDS: MEGACE PO SCH (10:49)
[2018-10-21] MEDS: ZESTRIL PO SCH (10:49)
[2018-10-21] MEDS: ALDACTONE PO SCH (10:49)
[2018-10-21] MEDS: ASPIRIN PO SCH (10:49)
[2018-10-21] MEDS: PROSCAR PO SCH (10:49)
--- NOTE | 2018-10-21 14:44 | Progress Note ---
Assessment and Plan Troponin elevation appears consistent with NSTEMI type II. Pt denies chest pain, ECG with NAF. D/c heparin gtt and cont all other present medical management. Pt does not appear to be a candidate for invasive cardiac eval/management at this time due to multiple co-morbidities. Will continue with medical management at this time. No overt heart failure noted. Currently stable cardiac status. Nothing further to add from cardiac perspective at this time. Will sign off. Recommend pt follow up in our office with Dr. Bo within 1-2 weeks of hospital discharge ([phone]). The patient has been seen in conjunction with Dr. Bo who agrees with the assessment and plan of care. - Patient Problems (1) Recurrent falls Current Visit: Yes Status: Acute (2) NSTEMI (non-ST elevated myocardial infarction) Onset Date: ~10/19/18 Current Visit: Yes Status: Acute (3) Cardiomyopathy Current Visit: Yes Status: Chronic (4) Pneumonia Current Visit: Yes Status: Acute (5) COPD (chronic obstructive pulmonary disease) Current Visit: Yes Status: Chronic (6) Weakness of both lower extremities Current Visit: Yes Status: Acute (7) Severe malnutrition Current Visit: Yes Status: Acute (8) CKD (chronic kidney disease) Current Visit: Yes Status: Chronic (9) Hyponatremia Current Visit: Yes Status: Acute (10) Rhabdomyolysis Current Visit: Yes Status: Acute (11) NSVT (nonsustained ventricular tachycardia) Current Visit: Yes Status: Acute Subjective Date of service: 10/21/18 Principal diagnosis: frequent falls Interval history: pt resting in bed, no current cardiac complaints. no NSVT overnight. Objective Last Vital Signs Temp 97.8 F 10/21/18 11:04 Pulse 122 H 10/21/18 11:04 Resp 20 10/21/18 11:04 BP 122/66 10/21/18 11:04 Pulse Ox 95 10/21/18 11:04 - Physical Examination General: No Apparent Distress, Cachectic HEENT: Positive: PERRL, Normocephaly, Mucus Membranes Moist Neck: Positive: neck supple, trachea midline Cardiac: Positive: Reg Rate and Rhythm, S1/S2 Lungs: Positive: Decreased Breath Sounds Neuro: Positive: Grossly Intact Abdomen: Positive: Soft. Negative: Tender Skin: Negative: Rash, Wound Musculoskeletal: No Pain Extremities: Absent: edema - Labs and Meds CBC 10/21/18 Range/Units 04:08 Hgb 9.6 L (11.8-15.2) gm/dl Hct 28.7 L (35.5-45.6) % Plt Count 180 (140-440) K/mm3 - Imaging and Cardiology EKG: report reviewed, image reviewed Echo: report reviewed (EF 15-20%, LV mod to severely dilated, restrictive diastolic filling, mild to mod MR, mild dilatation of the ascending aorta. ) - Telemetry EKG Rhythm: Sinus Rhythm
--- NOTE | 2018-10-21 15:28 | Progress Note ---
Assessment and Plan / Acute respiratory failure, present on admission Likely due to underlying COPD and acute CHF Continue to treat underlying medical condition, wean off oxygen as tolerated / NSTEMI (non-ST elevated myocardial infarction) Likely due to new onset CHF, cardiology consulted 2-D echo showed EF of 10-15%, continue aspirin and statin, started on Lasix Status post heparin drip for 48 hours, cardiology recommended conservative management /New onset CHF with EF 10-15% - We'll follow cardiology recommendation - Continue diuresis, supplemental oxygen, supportive care /COPD with acute exacerbation Continue duo nebs, supplemental oxygen, treated for underlying pneumonia /Hyponatremia closely monitor electrolytes, stop IV / RLL pneumonia Possible aspiration pneumonia, continue oxygen, IV antibiotics and follow cultures Supportive care /Severe malnutrition Nutrition supplements, and nutrition consulted / Rhabdomyolysis Probably secondary to fall and status post gentle IV hydration, closely monitor renal function and avoid nephrotoxins / Thrombocytopenia Probably secondary to history of prostate cancer, closely monitor /Recurrent falls Fall precautions, physical therapy occupational therapy rehabilitation / Discharge planning issues Possible acute versus subacute versus SNF placement when medically stable / DVT prophylaxis Lovenox[closely monitor platelets] Physical exam: General appearance: Present: mild distress, cachectic, disheveled - EENT Eyes: Present: PERRL, EOM intact - Neck Neck: Present: supple, normal ROM - Respiratory Respiratory effort: normal Respiratory: right: rhonchi, bilateral: diminished, negative: rales, wheezing - Cardiovascular Rhythm: regular Heart Sounds: Present: S1 & S2 - Extremities Extremities: no ischemia Extremity abnormal: edema - Abdominal General gastrointestinal: Present: soft, non-tender, non-distended, normal bowel sounds - Integumentary Integumentary: Present: clear, warm - Musculoskeletal Musculoskeletal: strength equal bilaterally, generalized weakness - Psychiatric Psychiatric: appropriate mood/affect, cooperative - Neurologic Neurologic: moves all extremities, other Subjective Date of service: 10/21/18 Principal diagnosis: frequent falls Interval history: Patient seen and examined. Medical records and medication list reviewed. No acute event overnight noted by the RN. Patient complains of difficulty breathing even on rest. Patient is tolerating diet. Discussed plan of care at bedside with patient. Objective - Constitutional Vitals: Vital Signs - 12hr 10/21/18 10/21/18 10/21/18 04:08 08:33 08:35 Temperature 97.8 F Pulse Rate 125 H Pulse Rate [ 82 Bilateral] Respiratory 28 H Rate Respiratory 16 Rate [Bilateral ] Blood Pressure 125/92 Blood Pressure [Right] O2 Sat by Pulse 94 97 Oximetry 10/21/18 10/21/18 10/21/18 08:54 09:01 11:04 Temperature 97.8 F Pulse Rate 122 H Pulse Rate [ 89 Bilateral] Respiratory 24 20 Rate Respiratory 18 Rate [Bilateral ] Blood Pressure Blood Pressure 122/66 [Right] O2 Sat by Pulse 95 Oximetry 10/21/18 10/21/18 10/21/18 14:53 15:11 15:12 Temperature Pulse Rate Pulse Rate [ 87 83 Bilateral] Respiratory Rate Respiratory 20 18 Rate [Bilateral ] Blood Pressure Blood Pressure [Right] O2 Sat by Pulse 94 Oximetry - Labs CBC & Chem 7: 10/22/18 04:40 10/22/18 04:40 Labs: Abnormal lab results 10/21/18 Range/Units 04:08 Hgb 9.6 L (11.8-15.2) gm/dl Hct 28.7 L (35.5-45.6) %
[2018-10-21] MEDS: LASIX IV SCH (16:19)
--- NOTE | 2018-10-21 17:39 | XRay Report ---
FINAL REPORT EXAM: XR CHEST 1V AP HISTORY: SOB TECHNIQUE: Frontal portable examination of the chest PRIORS: 10/19/2018 FINDINGS: Right pleural effusion slightly larger. Adjacent right lower lung density is slightly more prominent, nonspecific. New small left pleural effusion. Vascular markings are prominent which may reflect congestion. Cardiac silhouette size again enlarged. No pneumothorax. No acute displaced fracture. Atherosclerotic calcification again noted in aorta. IMPRESSION: Larger right and new small left pleural effusions Increased opacity lower half of right lung may reflect worsening atelectasis, edema, and/or pneumonia Increased pulmonary vascular markings may reflect new mild congestion
[2018-10-21] MEDS: PROVENTIL IH PRN (17:44)
[2018-10-22] MEDS: FLAGYL 500 MG/100 ML 500 MG/100 ML BAG IV SCH ×3 (02:24→13:57)
[2018-10-22] MEDS: DUONEB *Not for PRN Use IH SCH ×4 (02:53→20:30)
[2018-10-22 05:08] LABS: Basophils % (Auto) 0.1 % (0.0-1.8); Eosinophils % (Auto) 0.3 % (0.0-4.3); Hemoglobin 7.9 gm/dl (11.8-15.2); Lymphocytes % (Auto) 17.8 % (13.4-35.0); Mean Corpuscular HGB Conc 33 % (32-34); Mean Corpuscular Volume 95 fl (84-94); Monocytes # (Auto) 0.6 K/mm3 (0.0-0.8); Monocytes % (Auto) 11.1 % (0.0-7.3); Platelet Count 165 K/mm3 (140-440); Red Blood Count 2.52 M/mm3 (3.65-5.03); Red Cell Distribution Width 14.1 % (13.2-15.2)
[2018-10-22 05:21] LABS: BUN/Creatinine Ratio 47; Blood Urea Nitrogen 47 mg/dL (9-20); Calcium 7.9 mg/dL (8.4-10.2); Hemolysis Index 16
[2018-10-22] MEDS: UNASYN/NS 1.5 GM/50 ML 1.5 GM/50 ML BAG IV SCH ×2 (06:24→12:45)
[2018-10-22] MEDS: BROVANA NEBU IH SCH ×2 (09:20→20:30)
[2018-10-22] MEDS: PULMICORT IH SCH ×2 (09:20→20:30)
[2018-10-22] MEDS: LOPRESSOR PO SCH ×2 (09:51→22:38)
[2018-10-22] MEDS: FLOMAX PO SCH ×2 (09:51→22:37)
[2018-10-22] MEDS: MEGACE PO SCH (09:51)
[2018-10-22] MEDS: PROSCAR PO SCH (09:52)
[2018-10-22] MEDS: LASIX IV SCH (09:52)
[2018-10-22] MEDS: BABY ASPIRIN PO SCH (09:52)
[2018-10-22] MEDS: ZESTRIL PO SCH (09:52)
[2018-10-22] MEDS: ALDACTONE PO SCH (09:52)
--- NOTE | 2018-10-22 13:58 | Consultation ---
History of Present Illness Consult date: 10/22/18 Requesting physician: YULISSA ALONZO Reason for consult: COPD, other (Acute Hypoxemic Respiratory Failure) History of present illness: PCCM CONSULT NOTE (Full note dictated # [id number]) Please see dictated notes for full details Past History Past Medical History: COPD, hypertension, other (BPH) Past Surgical History: No surgical history Social history: lives with family, full code. denies: smoking, alcohol abuse Family history: hypertension Medications and Allergies Allergies Allergy/AdvReac Type Severity Reaction Status Date / Time No Known Allergies Allergy Unverified 10/19/18 03:53 Home Medications Medication Instructions Recorded Confirmed Last Taken Type Finasteride [Proscar] 5 mg PO QDAY 10/19/18 10/19/18 Unknown History Ipratropium/Albuterol Sulfate 1 vial IH Q8HR 10/19/18 10/19/18 Unknown History [DUONEB *Not for PRN Use*] Megestrol [Megace] 625 mg PO DAILY 10/19/18 10/19/18 Unknown History Tamsulosin HCl 0.4 mg PO BID 10/19/18 10/19/18 Unknown History VENTOLIN Inhaler(NF) 90 mcg IH Q6HR PRN 10/19/18 10/19/18 Unknown History Active Meds: Active Medications Acetaminophen (Tylenol) 650 mg PO Q4H PRN PRN Reason: Non Cardiac Pain or Temp>100.5 Last Admin: 10/21/18 09:00 Dose: 650 mg Documented by: Albuterol (Proventil) 2.5 mg IH Q4HRT PRN PRN Reason: Shortness Of Breath Last Admin: 10/21/18 17:44 Dose: 2.5 mg Documented by: Albuterol/Ipratropium (Duoneb *Not For Prn Use*) 1 ampul IH Q6HRT ON LICENSE OF [facility] Last Admin: 10/22/18 12:26 Dose: Not Given Documented by: Arformoterol Tartrate (Brovana Nebu) 15 mcg IH Q12HRT ON LICENSE OF [facility] Last Admin: 10/22/18 09:20 Dose: 15 mcg Documented by: Aspirin (Baby Aspirin) 81 mg PO QDAY ON LICENSE OF [facility] Last Admin: 10/22/18 09:52 Dose: 81 mg Documented by: Budesonide (Pulmicort) 0.5 mg IH Q12HRT ON LICENSE OF [facility] Last Admin: 10/22/18 09:20 Dose: 0.5 mg Documented by: Finasteride (Proscar) 5 mg PO QDAY ON LICENSE OF [facility] Last Admin: 10/22/18 09:52 Dose: 5 mg Documented by: Furosemide (Lasix) 40 mg IV QDAY ON LICENSE OF [facility] Last Admin: 10/22/18 09:52 Dose: Not Given Documented by: Ampicillin Sodium/Sulbactam Sodium (Unasyn/Ns 1.5 Gm/50 Ml) 1.5 gm in 50 mls @ 100 mls/hr IV Q6HR ON LICENSE OF [facility]; Protocol Last Admin: 10/22/18 12:45 Dose: 100 mls/hr Documented by: Metronidazole (Flagyl 500 Mg/100 Ml) 500 mg in 100 mls @ 100 mls/hr IV Q8HR ON LICENSE OF [facility]; Protocol Last Admin: 10/22/18 13:57 Dose: 100 mls/hr Documented by: Lisinopril (Zestril) 5 mg PO QDAY ON LICENSE OF [facility] Last Admin: 10/22/18 09:52 Dose: Not Given Documented by: Megestrol Acetate (Megace) 625 mg PO DAILY ON LICENSE OF [facility] Last Admin: 10/22/18 09:51 Dose: 625 mg Documented by: Metoprolol Tartrate (Lopressor) 25 mg PO BID ON LICENSE OF [facility] Last Admin: 10/22/18 09:51 Dose: 25 mg Documented by: Spironolactone (Aldactone) 25 mg PO QDAY ON LICENSE OF [facility] Last Admin: 10/22/18 09:52 Dose: Not Given Documented by: Tamsulosin HCl (Flomax) 0.4 mg PO BID ON LICENSE OF [facility] Last Admin: 10/22/18 09:51 Dose: 0.4 mg Documented by: Physical Examination Vital signs: Vital Signs Temp Pulse Resp BP Pulse Ox 95.9 F L 96 H 32 H 108/75 89 10/19/18 03:45 10/19/18 03:45 10/19/18 03:45 10/19/18 03:45 10/19/18 03:45 Results - Laboratory Findings CBC and BMP: 10/22/18 04:40 10/22/18 04:40 PT/INR, D-dimer PT 16.0 Sec. (12.2-14.9) H 10/19/18 19:57 INR 1.24 (0.87-1.13) H 10/19/18 19:57 Abnormal lab findings: Abnormal Labs 10/19/18 10/19/18 10/19/18 04:34 04:34 04:34 RBC 3.60 L Hgb 11.3 L Hct 33.9 L MCV Lymph % (Auto) 10.6 L [place] % (Auto) 11.7 H Lymph # 0.6 L Seg Neutrophils % 77.5 H PT INR APTT 23.0 L Heparin Anti-Xa Level Sodium 126 L Chloride 92.1 L Carbon Dioxide 20 L BUN 35 H Glucose POC Glucose Calcium Magnesium AST 67 H ALT 77 H Total Creatine Kinase 1300 H CK-MB (CK-2) 15.7 H Troponin T 0.175 H* Total Protein 5.7 L Albumin 3.3 L HDL Cholesterol 60 H Free T4 10/19/18 10/19/18 10/19/18 13:45 18:23 19:57 RBC Hgb 10.6 L Hct 31.2 L MCV Lymph % (Auto) [place] % (Auto) Lymph # Seg Neutrophils % PT INR APTT Heparin Anti-Xa Level Sodium Chloride Carbon Dioxide BUN Glucose POC Glucose Calcium Magnesium AST ALT Total Creatine Kinase 881 H 707 H CK-MB (CK-2) 10.6 H 8.7 H Troponin T 0.175 H* 0.198 H* Total Protein Albumin HDL Cholesterol Free T4 10/19/18 10/20/18 10/20/18 19:57 04:54 04:54 RBC 3.30 L Hgb 10.4 L Hct 30.9 L MCV Lymph % (Auto) [place] % (Auto) 12.0 H Lymph # 0.7 L Seg Neutrophils % 72.8 H PT 16.0 H INR 1.24 H APTT Heparin Anti-Xa Level Sodium 127 L Chloride 97.7 L Carbon Dioxide 21 L BUN 25 H Glucose 102 H POC Glucose Calcium 7.6 L Magnesium AST 41 H ALT 57 H Total Creatine Kinase 520 H CK-MB (CK-2) Troponin T Total Protein 4.8 L Albumin 2.7 L HDL Cholesterol Free T4 10/20/18 10/20/18 10/20/18 04:54 06:38 13:07 RBC Hgb Hct MCV Lymph % (Auto) [place] % (Auto) Lymph # Seg Neutrophils % PT INR APTT Heparin Anti-Xa Level 0.16 L 0.27 L Sodium Chloride Carbon Dioxide BUN Glucose POC Glucose 145 H Calcium Magnesium AST ALT Total Creatine Kinase CK-MB (CK-2) Troponin T Total Protein Albumin HDL Cholesterol Free T4 10/20/18 10/20/18 10/21/18 13:07 13:07 04:08 RBC Hgb 9.6 L Hct 28.7 L MCV Lymph % (Auto) [place] % (Auto) Lymph # Seg Neutrophils % PT INR APTT Heparin Anti-Xa Level Sodium Chloride Carbon Dioxide BUN Glucose POC Glucose Calcium Magnesium 2.40 H AST ALT Total Creatine Kinase CK-MB (CK-2) Troponin T Total Protein Albumin HDL Cholesterol Free T4 1.68 H 10/22/18 10/22/18 04:40 04:40 RBC 2.52 L Hgb 7.9 L Hct 24.0 L MCV 95 H Lymph % (Auto) [place] % (Auto) 11.1 H Lymph # 1.0 L Seg Neutrophils % 70.7 H PT INR APTT Heparin Anti-Xa Level Sodium 135 L D Chloride Carbon Dioxide BUN 47 H Glucose POC Glucose Calcium 7.9 L Magnesium AST ALT Total Creatine Kinase CK-MB (CK-2) Troponin T Total Protein Albumin HDL Cholesterol Free T4
--- NOTE | 2018-10-22 18:29 | Progress Note ---
Assessment and Plan / Acute respiratory failure, present on admission Likely due to underlying COPD and acute CHF Continue to treat underlying medical condition, wean off oxygen as tolerated / NSTEMI (non-ST elevated myocardial infarction) Likely due to new onset CHF, cardiology consulted 2-D echo showed EF of 15-20%, continue aspirin and statin, started on Lasix Status post heparin drip for 48 hours, cardiology recommended conservative management /New onset CHF with EF 15-20% - We'll follow cardiology recommendation - Continue diuresis, supplemental oxygen, supportive care /COPD with acute exacerbation Continue duo nebs, supplemental oxygen, treated for underlying pneumonia /Hyponatremia closely monitor electrolytes, stop IV /Normocytic anemia, we'll order stool for occult blood No sign of active bleeding / RLL pneumonia Possible aspiration pneumonia, continue oxygen, IV antibiotics and follow cultures Supportive care /Severe malnutrition Nutrition supplements, and nutrition consulted / Rhabdomyolysis Probably secondary to fall and status post gentle IV hydration, closely monitor renal function and avoid nephrotoxins / Thrombocytopenia Probably secondary to history of prostate cancer, closely monitor /Recurrent falls Fall precautions, physical therapy occupational therapy rehabilitation / Discharge planning issues Possible acute versus subacute versus SNF placement when medically stable / DVT prophylaxis Lovenox[closely monitor platelets] Physical exam: General appearance: Present: mild distress, cachectic, disheveled - EENT Eyes: Present: PERRL, EOM intact - Neck Neck: Present: supple, normal ROM - Respiratory Respiratory effort: normal Respiratory: right: rhonchi, bilateral: diminished, negative: rales, wheezing - Cardiovascular Rhythm: regular Heart Sounds: Present: S1 & S2 - Extremities Extremities: no ischemia Extremity abnormal: edema - Abdominal General gastrointestinal: Present: soft, non-tender, non-distended, normal bowel sounds - Integumentary Integumentary: Present: clear, warm - Musculoskeletal Musculoskeletal: strength equal bilaterally, generalized weakness - Psychiatric Psychiatric: appropriate mood/affect, cooperative - Neurologic Neurologic: moves all extremities, other Subjective Date of service: 10/22/18 Principal diagnosis: frequent falls Interval history: Patient seen and examined. Medical records and medication list reviewed. No acute event overnight noted by the RN. Patient complains of difficulty breathing but states he is feeling much better today. Patient is tolerating diet. Discussed plan of care at bedside with patient. Objective - Constitutional Vitals: Vital Signs - 12hr 10/22/18 10/22/18 10/22/18 07:20 09:20 09:35 Temperature 98.1 F Pulse Rate 117 H Pulse Rate [ 114 H 113 H Anterior Bilateral] Pulse Rate [ 90 Bilateral] Pulse Rate [ From Monitor] Respiratory 34 H Rate Respiratory 18 22 Rate [Anterior Bilateral] Respiratory 18 Rate [Bilateral ] Blood Pressure Blood Pressure 111/66 [Left] O2 Sat by Pulse 99 Oximetry 10/22/18 10/22/18 10/22/18 09:51 09:52 10:00 Temperature Pulse Rate 117 H 117 H 122 H Pulse Rate [ Anterior Bilateral] Pulse Rate [ Bilateral] Pulse Rate [ 117 H From Monitor] Respiratory 34 H Rate Respiratory Rate [Anterior Bilateral] Respiratory Rate [Bilateral ] Blood Pressure 111/66 111/66 Blood Pressure [Left] O2 Sat by Pulse 99 Oximetry 10/22/18 10/22/18 10/22/18 11:17 12:28 15:26 Temperature 98.2 F Pulse Rate 104 H Pulse Rate [ 104 H Anterior Bilateral] Pulse Rate [ Bilateral] Pulse Rate [ From Monitor] Respiratory 32 H Rate Respiratory 21 Rate [Anterior Bilateral] Respiratory Rate [Bilateral ] Blood Pressure Blood Pressure 99/63 [Left] O2 Sat by Pulse 98 98 Oximetry 10/22/18 10/22/18 15:35 16:00 Temperature 98.2 F Pulse Rate 78 Pulse Rate [ 87 Anterior Bilateral] Pulse Rate [ Bilateral] Pulse Rate [ From Monitor] Respiratory 32 H Rate Respiratory 22 Rate [Anterior Bilateral] Respiratory Rate [Bilateral ] Blood Pressure Blood Pressure 102/64 [Left] O2 Sat by Pulse 100 Oximetry - Labs CBC & Chem 7: 10/23/18 06:02 10/22/18 04:40 Labs: Abnormal lab results 10/22/18 10/22/18 Range/Units 04:40 04:40 RBC 2.52 L (3.65-5.03) M/mm3 Hgb 7.9 L (11.8-15.2) gm/dl Hct 24.0 L (35.5-45.6) % MCV 95 H (84-94) fl [place] % (Auto) 11.1 H (0.0-7.3) % Lymph # 1.0 L (1.2-5.4) K/mm3 Seg Neutrophils % 70.7 H (40.0-70.0) % Sodium 135 L D (137-145) mmol/L BUN 47 H (9-20) mg/dL Calcium 7.9 L (8.4-10.2) mg/dL
--- NOTE | 2018-10-22 20:15 | Ultrasound Report ---
FINAL REPORT PROCEDURE: US CHEST TECHNIQUE: Real-time sonography in multiple planes of the chest was performed with image documentati on. CPT 25568 HISTORY: bilateral effusions pre: possible thoracentesis COMPARISON: No prior studies are available for comparison. FINDINGS: RIGHT chest: Minimal amount of right pleural effusion is noted LEFT chest: Mild degree of left pleural effusion is noted IMPRESSION: Bilateral pleural effusions
[2018-10-22 20:54] LABS: Iron 13 ug/dL (49-181); Total Iron Binding Capacity 233 mcg/dL (250-450)
--- NOTE | 2018-10-22 21:47 | Consultation ---
PULMONARY CONSULTATION NOTE CONSULTING PHYSICIAN: Dr. Patrizia Santacruz. REASON FOR CONSULTATION: Acute hypoxemic respiratory failure, COPD. CHIEF COMPLAINT AND HISTORY OF PRESENT ILLNESS: The patient is a 78-year-old -Mal[place]ian male with past medical history significant amongst other things for a diagnosis of chronic obstructive lung disease for which he tells me he is not on home oxygen. He does admit to a 30+ packs year tobacco smoking history, but not any longer. He came into the Emergency Room because family says he had been falling frequently. He was evaluated in the Emergency Room, he complained of shortness of breath. He had mild cough. A workup was consistent with pneumonia. He was admitted with a non-ST elevation myocardial infarction, right lower lobe pneumonia. We were asked to assist with management. When I stopped by to see him, he was resting peacefully in bed, remained on supplemental oxygen. He denied any chest pains. He admitted to cough. Denied any expectoration. Denied any hemoptysis. Denied any subjective fever or chills. He does seem to have an element of dementia, so his history is a little bit questionable. This really is as much of the history of presentation as I have. It is unclear if there were any sick contacts at home and is really unclear if he is actually on any home bronchodilators, although his home medication list mentions him being on DuoNeb nebulizer treatments. PAST MEDICAL HISTORY: Again, chronic obstructive lung disease, hypertension, benign prostatic hyperplasia, and history of prostate cancer. PAST SURGICAL HISTORY: Unknown. MEDICATIONS: He was on at the time I stopped by to see were reviewed. Pertinent medications included the following: Tylenol 650 mg p.o. q.4 hours p.r.n. mild pain or fevers, albuterol 2.5 mg nebulized q.4 hours p.r.n. shortness of breath, DuoNeb nebulizer treatments were scheduled q.6 hours. He is on Unasyn 1.5 g IV q.6 hours, Brovana 15 mcg nebulized q.12 hours, aspirin 81 mg p.o. daily, Pulmicort 0.5 mg nebulized q.12 hours, Proscar 5 mg p.o. daily, Lasix 40 mg IV daily, lisinopril 5 mg p.o. daily, Megace 625 mg p.o. daily, Lopressor 25 mg p.o. b.i.d., Flagyl 500 mg IV q.8 hours, Aldactone 25 mg p.o. daily and Flomax 0.4 mg p.o. b.i.d. ALLERGIES: No known drug allergies. DIET: Thin gentleman, acute weight loss or gain history is unknown. FAMILY AND SOCIAL HISTORY: Apparently lives at home with his family. He has a 30+ packs year, now remote tobacco smoking history. There is a family history of hypertension. REVIEW OF SYSTEMS: Difficult to obtain secondary to the patient's medical and mental condition. Since he has been here, no gross hematochezia or melena, no gross hematuria, no hematemesis, no hemoptysis, no witnessed seizures and no loss of consciousness. Review of systems is otherwise unobtainable or as in the body of history above. PHYSICAL EXAMINATION: VITAL SIGNS: At presentation, he was hypothermic, temperature 95.9 degrees Fahrenheit with a pulse of 96, respiratory rate of 32, blood pressure of 108/75, O2 sats were 89%, inspired oxygen concentration at that time was not recorded. When I stopped by to see him, O2 sats were 98%; however, that was on 3 liters nasal cannula. GENERAL: He is an elderly looking, somewhat chronically ill-looking -Mal[place]ian male. Normocephalic, atraumatic, talking to me in mostly uninterrupted sentences, but with mild increased respiratory effort. HEAD, EYES, EARS, NOSE AND THROAT: He is anicteric. No conjunctival erythema. Oropharynx is moist. He has poor oropharyngeal hygiene and is partially edentulous. No thyromegaly, no gross jugular venous distention. He has mild temporal wasting. Grossly, no palpable lymph nodes in the supraclavicular or submandibular lymph node chains. LUNGS: Auscultation of both lung marquez significant for diminished bilateral breath sounds, bibasilar inspiratory rales, prolonged expiratory phase. No active wheezing. HEART: Heart sounds 1 and 2 are heard. They were regular in rate and rhythm at the time of my evaluation, without rubs or murmurs. ABDOMEN: Soft, full, bowel sounds were positive, nontender. No palpable hepatomegaly. EXTREMITIES: Without overt digital clubbing, no cyanosis, no pedal edema. Dorsalis pedis pulses were palpable bilaterally. NEUROLOGIC: Pupils were equal, round, about 2 mm, sluggishly reactive to light. Extraocular muscle movements appeared intact. He moved all 4 extremities spontaneously. PSYCHIATRIC: Psychiatric rock, his mood was normal. His affect was appropriate. He might have an element of dementia. SKIN: The skin was of poor turgor without overt cellulitis or rash. LABORATORY DATA: From my review are as follows: Admission white cell count 5400, hemoglobin 11.3, hematocrit 33.9, and platelet count 156. INR was 1.12. Serum sodium was 126, potassium was 4.5, chloride 92, bicarbonate 20, BUN 35, creatinine 1.2, and glucose was 95. Lactic acid level was within normal limits. Troponin was up at 0.18. CPK was up at 1300. Albumin was low at 3.3. AST and ALT were elevated at 67 and 77. Urinalysis, moderate blood, negative for nitrites and leukocyte esterase. Urine drug screen, presumptive negative. His hemoglobin is down to 7.9, MCV is 95. Serum sodium is up to 135, BUN 47, creatinine 1.0. TSH was within normal limits. Blood cultures both sets, no growth to date. Radiographic studies were done. He had a chest x-ray done at presentation. I have reviewed the chest x-ray as well as the radiologist's interpretation. I do agree he does have blunting of the right costophrenic angle and really the left with minimal extent. He has hazy infiltrates with increased interstitial markings in both the chronic and in acute looking pattern. He does have gross cardiomegaly. We suggest that this may be pulmonary edema also at play. No gross pneumothorax, no gross bony fracture. Most recent chest x-ray actually suggests increase in the right pleural effusion and development of left pleural effusion, certainly cannot rule out atelectasis. A 2D echocardiogram was also done at presentation. I have reviewed the report documents and EF of 15%-20% with diastolic impaired filling and RV systolic pressures of 40 mmHg. ASSESSMENT AND PLAN: 1. Acute hypoxemic respiratory failure. 2. Acute congestive heart failure exacerbation. 3. Possible pneumonia. 4. Acute chronic obstructive pulmonary disease exacerbation. 5. Adult failure to thrive. 6. Hypertension by history. 7. Hyponatremia, moderate at presentation. 8. Anemia that was normocytic at presentation 9. Elevated serum transaminases. 10. Non-ST elevation myocardial infarction. 11. Acute kidney injury. 12. Elevated CPK. PLAN: We agree with current strategies including gentle diuresis in this gentleman with severe congestive heart failure. We agree with long-acting bronchodilators as well as inhaled corticosteroids as well as short-acting bronchodilators, antibiotics can probably be deescalated at this point. Blood cultures have been negative for greater than 72 hours. I believe Levaquin monotherapy should be appropriate at this time. Bilateral ultrasounds of the chest will be done and the larger pleural effusion will be drained to send for studies and make sure we are not dealing with a parapneumonic effusion. He is going to be placed on GI prophylaxis as well as DVT prophylaxis. Flu and pneumonia vaccination will be addressed per protocol. Cardiology evaluation, I believe is ongoing. Thank you very much for the consult. We will follow along. We will make further recommendations as picture progresses/becomes clearer. JOB# [id number] DEVIN/MANOJ MARTINO
[2018-10-22] MEDS ORDERED: HEPARIN SUB-Q SCH (22:00)
[2018-10-22] MEDS: DELTASONE PO SCH (22:36)
[2018-10-23] MEDS: DUONEB *Not for PRN Use IH SCH ×4 (02:51→20:35)
[2018-10-23 06:23] LABS: Hematocrit 22.6 % (35.5-45.6); Hemoglobin 7.4 gm/dl (11.8-15.2)
[2018-10-23] MEDS: PULMICORT IH SCH ×2 (08:43→20:35)
[2018-10-23] MEDS: BROVANA NEBU IH SCH ×2 (08:44→20:35)
[2018-10-23] MEDS: LEVAQUIN 500MG/100ML 500 MG/100 ML BAG IV SCH (11:29)
[2018-10-23] MEDS: LASIX IV SCH (11:35)
[2018-10-23] MEDS: ZESTRIL PO SCH (11:37)
[2018-10-23] MEDS: PEPCID PO SCH (11:37)
[2018-10-23] MEDS: PROSCAR PO SCH (11:38)
[2018-10-23] MEDS: MEGACE PO SCH (11:38)
[2018-10-23] MEDS: LOPRESSOR PO SCH ×2 (11:39→23:04)
[2018-10-23] MEDS: DELTASONE PO SCH (11:40)
[2018-10-23] MEDS: ALDACTONE PO SCH (11:40)
[2018-10-23] MEDS: BABY ASPIRIN PO SCH (11:40)
[2018-10-23] MEDS: FLOMAX PO SCH ×2 (11:40→23:04)
--- NOTE | 2018-10-23 12:56 | Progress Note ---
Assessment and Plan Acute hypoxemic respiratory failure. Acute congestive heart failure exacerbation. Possible pneumonia. Acute chronic obstructive pulmonary disease exacerbation. Non-ST elevation myocardial infarction. Acute kidney injury. Adult failure to thrive. Hypertension by history. Hyponatremia, moderate at presentation. Anemia that was normocytic at presentation Elevated serum transaminases. Elevated CPK - continue supplemental oxygen to keep O2 Sat's > 90% - continue bronchodilators with pulmonary hygiene per RT - aspiration precautions - US chest with small effusions and not a safe window for thoracentesis - continue ACS w/up per cardiology - continue ICS (pulmicort) - medical management for CHF per cardiology - complete empiric AB's course - anti-platelet therapy (on ASA & s/p IV heparin) - continue megace - nutrition consult for adult FTT - follow I's & O's - PT/OT as tolerated - GI prophylaxis - Flu & pneumovax addressed per protocol .... re-evaluate in am & prn Subjective Date of service: 10/23/18 Principal diagnosis: Acute hypoxemic Resp failure; Acute CHF exacerbation; AE- COPD; NSTEMI Interval history: Patient is seen today for: Acute hypoxemic respiratory failure; Acute congestive heart failure exacerbation; Possible pneumonia; Acute chronic obstructive pulmonary disease exacerbation; Non-ST elevation myocardial infarction. Seen and examined at bedside; 24hour events reviewed; nursing and respiratory care staff consulted; no adverse overnight events reported to me; remains on supplemental oxygen; resting peacefully in bed; denies acute chest pains or palpitations; No N/V/F/C Objective Vital Signs - 12hr 10/23/18 10/23/18 10/23/18 02:53 03:04 03:29 Temperature 98.0 F Pulse Rate 111 H Pulse Rate [ 85 102 H Anterior Bilateral] Respiratory 18 Rate Respiratory 18 18 Rate [Anterior Bilateral] Blood Pressure 122/76 O2 Sat by Pulse 96 Oximetry 10/23/18 10/23/18 10/23/18 07:13 08:45 08:52 Temperature 97.6 F Pulse Rate 110 H Pulse Rate [ 94 H 96 H Anterior Bilateral] Respiratory 20 Rate Respiratory 20 18 Rate [Anterior Bilateral] Blood Pressure 117/57 O2 Sat by Pulse 96 Oximetry 10/23/18 10/23/18 10/23/18 10:00 11:37 11:39 Temperature Pulse Rate 100 H 100 H Pulse Rate [ Anterior Bilateral] Respiratory Rate Respiratory Rate [Anterior Bilateral] Blood Pressure O2 Sat by Pulse 97 Oximetry 10/23/18 10/23/18 10/23/18 11:40 12:00 12:43 Temperature 98.0 F Pulse Rate 100 H 113 H Pulse Rate [ Anterior Bilateral] Respiratory 24 Rate Respiratory Rate [Anterior Bilateral] Blood Pressure 100/61 O2 Sat by Pulse 95 70 L Oximetry Constitutional: no acute distress, alert, other (elderly looking AAM, normocephalic and atraumatic with mildly increased respiratory effort at rest) Eyes: non-icteric ENT: oropharynx moist, other (poor oral hygiene) Neck: supple, no lymphadenopathy, JVD, other (no thyromegaly) Effort: mildly labored Ascultation: Bilateral: diminished breath sounds, rhonchi Percussion: Bilateral: not dull Cardiovascular: regular rate and rhythm, murmur noted (systolic) Gastrointestinal: normoactive bowel sounds, soft, non-tender, non-distended Integumentary: other (poor turgor) Extremities: no cyanosis, no edema, pink and warm, pulses normal, no ischemia or petechiae Neurologic: normal mental status, non-focal exam (grossly), pupils equal and round, CN II-XII normal Psychiatric: mood appropriate, affect normal CBC and BMP: 10/27/18 08:46 10/27/18 08:46 ABG, PT/INR, D-dimer: PT/INR, D-dimer PT 16.0 Sec. (12.2-14.9) H 10/19/18 19:57 INR 1.24 (0.87-1.13) H 10/19/18 19:57 Abnormal lab findings: Abnormal Labs 10/19/18 10/19/18 10/19/18 04:34 04:34 04:34 RBC 3.60 L Hgb 11.3 L Hct 33.9 L MCV Lymph % (Auto) 10.6 L M[place]re[place] % (Auto) 11.7 H Lymph # 0.6 L Seg Neutrophils % 77.5 H PT INR APTT 23.0 L Heparin Anti-Xa Level Sodium 126 L Chloride 92.1 L Carbon Dioxide 20 L BUN 35 H Glucose POC Glucose Calcium Magnesium Iron TIBC AST 67 H ALT 77 H Total Creatine Kinase 1300 H CK-MB (CK-2) 15.7 H Troponin T 0.175 H* Total Protein 5.7 L Albumin 3.3 L HDL Cholesterol 60 H Folate Free T4 10/19/18 10/19/18 10/19/18 13:45 18:23 19:57 RBC Hgb 10.6 L Hct 31.2 L MCV Lymph % (Auto) [place] % (Auto) Lymph # Seg Neutrophils % PT INR APTT Heparin Anti-Xa Level Sodium Chloride Carbon Dioxide BUN Glucose POC Glucose Calcium Magnesium Iron TIBC AST ALT Total Creatine Kinase 881 H 707 H CK-MB (CK-2) 10.6 H 8.7 H Troponin T 0.175 H* 0.198 H* Total Protein Albumin HDL Cholesterol Folate Free T4 10/19/18 10/20/18 10/20/18 19:57 04:54 04:54 RBC 3.30 L Hgb 10.4 L Hct 30.9 L MCV Lymph % (Auto) [place] % (Auto) 12.0 H Lymph # 0.7 L Seg Neutrophils % 72.8 H PT 16.0 H INR 1.24 H APTT Heparin Anti-Xa Level Sodium 127 L Chloride 97.7 L Carbon Dioxide 21 L BUN 25 H Glucose 102 H POC Glucose Calcium 7.6 L Magnesium Iron TIBC AST 41 H ALT 57 H Total Creatine Kinase 520 H CK-MB (CK-2) Troponin T Total Protein 4.8 L Albumin 2.7 L HDL Cholesterol Folate Free T4 10/20/18 10/20/18 10/20/18 04:54 06:38 13:07 RBC Hgb Hct MCV Lymph % (Auto) [place] % (Auto) Lymph # Seg Neutrophils % PT INR APTT Heparin Anti-Xa Level 0.16 L 0.27 L Sodium Chloride Carbon Dioxide BUN Glucose POC Glucose 145 H Calcium Magnesium Iron TIBC AST ALT Total Creatine Kinase CK-MB (CK-2) Troponin T Total Protein Albumin HDL Cholesterol Folate Free T4 10/20/18 10/20/18 10/21/18 13:07 13:07 04:08 RBC Hgb 9.6 L Hct 28.7 L MCV Lymph % (Auto) [place] % (Auto) Lymph # Seg Neutrophils % PT INR APTT Heparin Anti-Xa Level Sodium Chloride Carbon Dioxide BUN Glucose POC Glucose Calcium Magnesium 2.40 H Iron TIBC AST ALT Total Creatine Kinase CK-MB (CK-2) Troponin T Total Protein Albumin HDL Cholesterol Folate Free T4 1.68 H 10/22/18 10/22/18 10/22/18 04:40 04:40 19:57 RBC 2.52 L Hgb 7.9 L Hct 24.0 L MCV 95 H Lymph % (Auto) [place] % (Auto) 11.1 H Lymph # 1.0 L Seg Neutrophils % 70.7 H PT INR APTT Heparin Anti-Xa Level Sodium 135 L D Chloride Carbon Dioxide BUN 47 H Glucose POC Glucose Calcium 7.9 L Magnesium Iron 13 L TIBC 233 L AST ALT Total Creatine Kinase CK-MB (CK-2) Troponin T Total Protein Albumin HDL Cholesterol Folate Free T4 10/22/18 10/23/18 19:57 06:02 RBC Hgb 7.4 L Hct 22.6 L MCV Lymph % (Auto) [place] % (Auto) Lymph # Seg Neutrophils % PT INR APTT Heparin Anti-Xa Level Sodium Chloride Carbon Dioxide BUN Glucose POC Glucose Calcium Magnesium Iron TIBC AST ALT Total Creatine Kinase CK-MB (CK-2) Troponin T Total Protein Albumin HDL Cholesterol Folate 6.57 L Free T4 Chest x-ray: image reviewed Allied health notes reviewed: nursing
--- NOTE | 2018-10-23 16:18 | Progress Note ---
Assessment and Plan / Acute respiratory failure, present on admission Likely due to underlying COPD and acute CHF Continue to treat underlying medical condition, wean off oxygen as tolerated / NSTEMI (non-ST elevated myocardial infarction) Likely due to new onset CHF, cardiology consulted 2-D echo showed EF of 15-20%, continue aspirin and statin, started on Lasix Status post heparin drip for 48 hours, cardiology recommended conservative management /New onset CHF with EF 15-20% - We'll follow cardiology recommendation - Continue diuresis, supplemental oxygen, supportive care /COPD with acute exacerbation Continue duo nebs, supplemental oxygen, treated for underlying pneumonia /Hyponatremia closely monitor electrolytes, stop IV /macrocytic anemia, due to folate deficiency No sign of active bleeding, replace folate we'll order stool for occult blood to r/o possible GI bleed also as h/h trending down / RLL pneumonia Possible aspiration pneumonia, continue oxygen, IV antibiotics and follow cultures Supportive care /Severe malnutrition Nutrition supplements, and nutrition consulted / Rhabdomyolysis Probably secondary to fall and status post gentle IV hydration, closely monitor renal function and avoid nephrotoxins / Thrombocytopenia Probably secondary to history of prostate cancer, closely monitor /Recurrent falls Fall precautions, physical therapy occupational therapy rehabilitation / Discharge planning issues Possible acute versus subacute versus SNF placement when medically stable / DVT prophylaxis Lovenox[closely monitor platelets] Disposition: FAMILY REQUESTED snf Physical exam: General appearance: Present: mild distress, cachectic, disheveled - EENT Eyes: Present: PERRL, EOM intact - Neck Neck: Present: supple, normal ROM - Respiratory Respiratory effort: normal Respiratory: right: rhonchi, bilateral: diminished, negative: rales, wheezing - Cardiovascular Rhythm: regular Heart Sounds: Present: S1 & S2 - Extremities Extremities: no ischemia Extremity abnormal: edema - Abdominal General gastrointestinal: Present: soft, non-tender, non-distended, normal bowel sounds - Integumentary Integumentary: Present: clear, warm - Musculoskeletal Musculoskeletal: strength equal bilaterally, generalized weakness - Psychiatric Psychiatric: appropriate mood/affect, cooperative - Neurologic Neurologic: moves all extremities, other Subjective Date of service: 10/23/18 Principal diagnosis: frequent falls Interval history: Patient seen and examined. Medical records and medication list reviewed. No acute event overnight noted by the RN. Patient states he is feeling much better today. Patient is tolerating diet. Discussed plan of care at bedside with patient and his sister Objective - Constitutional Vitals: Vital Signs - 12hr 10/23/18 10/23/18 10/23/18 07:13 08:45 08:52 Temperature 97.6 F Pulse Rate 110 H Pulse Rate [ 94 H 96 H Anterior Bilateral] Pulse Rate [ From Monitor] Respiratory 20 Rate Respiratory 20 18 Rate [Anterior Bilateral] Blood Pressure 117/57 O2 Sat by Pulse 96 Oximetry 10/23/18 10/23/18 10/23/18 10:00 11:37 11:39 Temperature Pulse Rate 100 H 100 H 100 H Pulse Rate [ Anterior Bilateral] Pulse Rate [ 100 H From Monitor] Respiratory 18 Rate Respiratory Rate [Anterior Bilateral] Blood Pressure O2 Sat by Pulse 97 Oximetry 10/23/18 10/23/18 10/23/18 11:40 12:00 12:43 Temperature 98.0 F Pulse Rate 100 H 113 H Pulse Rate [ Anterior Bilateral] Pulse Rate [ From Monitor] Respiratory 24 Rate Respiratory Rate [Anterior Bilateral] Blood Pressure 100/61 O2 Sat by Pulse 95 70 L Oximetry 10/23/18 10/23/18 13:13 13:23 Temperature Pulse Rate Pulse Rate [ 96 H 96 H Anterior Bilateral] Pulse Rate [ From Monitor] Respiratory Rate Respiratory 20 20 Rate [Anterior Bilateral] Blood Pressure O2 Sat by Pulse Oximetry - Labs CBC & Chem 7: 10/23/18 06:02 10/22/18 04:40 Labs: Abnormal lab results 10/22/18 10/22/18 10/23/18 Range/Units 19:57 19:57 06:02 Hgb 7.4 L (11.8-15.2) gm/dl Hct 22.6 L (35.5-45.6) % Iron 13 L (49-181) ug/dL TIBC 233 L (250-450) mcg/dL Folate 6.57 L (7.3-26.0) ng/mL
[2018-10-24] MEDS: DUONEB *Not for PRN Use IH SCH ×4 (02:08→20:13)
[2018-10-24] MEDS: BROVANA NEBU IH SCH ×2 (08:01→20:08)
[2018-10-24] MEDS: PULMICORT IH SCH ×2 (08:01→20:08)
[2018-10-24] MEDS ORDERED: FOLVITE PO SCH (11:00)
[2018-10-24 11:25] LABS: Hematocrit 20.5 % (35.5-45.6); Hemoglobin 6.7 gm/dl (11.8-15.2); Mean Corpuscular HGB Conc 33 % (32-34); Mean Corpuscular Volume 95 fl (84-94); Platelet Count 192 K/mm3 (140-440); Red Blood Count 2.15 M/mm3 (3.65-5.03); Red Cell Distribution Width 14.6 % (13.2-15.2)
[2018-10-24 11:38] LABS: BUN/Creatinine Ratio 30; Blood Urea Nitrogen 30 mg/dL (9-20); Calcium 8.1 mg/dL (8.4-10.2); Hemolysis Index 2
[2018-10-24] MEDS ORDERED: NACL 0.9% 500 ML 500 ML IV NR (13:37)
[2018-10-24] MEDS: ALDACTONE PO SCH (13:59)
[2018-10-24] MEDS: LEVAQUIN 500MG/100ML 500 MG/100 ML BAG IV SCH (14:01)
[2018-10-24] MEDS: BABY ASPIRIN PO SCH (14:05)
--- NOTE | 2018-10-24 14:15 | Gastroenterology Consultation ---
Addendum entered and electronically signed by LEO LIZ MD 10/24/18 17:38: I have personally interviewed and examined the patient. I agree with the A/P. No melena this afternoon after starting protonix gtt. Will avoid EGD if at all possible (see Cards note) based on cardiac risk stratification. Original Note: History of Present Illness - Reason for Consult Consult date: 10/24/18 GIB?, drop in H/H Requesting physician: YULISSA ALONZO - History of Present Illness Patient is a 78 y/o male with PMH of COPD, prostate cancer, BPH, and HTN who was brought to ED for c/o mild SOB, generalized weakness, and recurrent falls. He was admitted and currently being treated for acute respiratory failure (2/2 underlying COPD and acute CHF), NSTEMI (previously on heparin drip x 48hrs; EF 15-20%; NSVT; not a candidate for invasive cardiac eval/management per cardiology), new onset CHF, pneumonia (aspiration?; on antibiotics), severe malnutrition, rhabdomyolysis, thrombocytopenia (likely 2/2 prostate cancer), and anemia with drop in H/H to which GI has been consulted for a possible GIB. This afternoon patient was resting in bed w/o acute distress. Sister at bedside who assisted with obtaining history. No hematemesis or hematochezia, however BM today with black stool per nursing. Denies CP, abd pain, N/V, diarrhea, or c onstipation. No previous hx of GI bleeding or PUD. No prior EGD. Last colonoscopy within the last 5 years with negative results per pt/family report. Past History Past Medical History: COPD, hypertension, other (BPH) Past Surgical History: No surgical history Social history: lives with family, full code. denies: smoking, alcohol abuse Family history: hypertension Medications and Allergies Allergies Allergy/AdvReac Type Severity Reaction Status Date / Time No Known Allergies Allergy Unverified 10/19/18 03:53 Home Medications Medication Instructions Recorded Confirmed Last Taken Type Finasteride [Proscar] 5 mg PO QDAY 10/19/18 10/19/18 Unknown History Ipratropium/Albuterol Sulfate 1 vial IH Q8HR 10/19/18 10/19/18 Unknown History [DUONEB *Not for PRN Use*] Megestrol [Megace] 625 mg PO DAILY 10/19/18 10/19/18 Unknown History Tamsulosin HCl 0.4 mg PO BID 10/19/18 10/19/18 Unknown History VENTOLIN Inhaler(NF) 90 mcg IH Q6HR PRN 10/19/18 10/19/18 Unknown History Active Meds: Active Medications Acetaminophen (Tylenol) 650 mg PO Q4H PRN PRN Reason: Non Cardiac Pain or Temp>100.5 Last Admin: 10/21/18 09:00 Dose: 650 mg Documented by: Albuterol (Proventil) 2.5 mg IH Q4HRT PRN PRN Reason: Shortness Of Breath Last Admin: 10/21/18 17:44 Dose: 2.5 mg Documented by: Albuterol/Ipratropium (Duoneb *Not For Prn Use*) 1 ampul IH Q6HRT [facility] [place] Last Admin: 10/24/18 08:01 Dose: 1 ampul Documented by: Arformoterol Tartrate (Brovana Nebu) 15 mcg IH Q12HRT [facility] [place] Last Admin: 10/24/18 08:01 Dose: 15 mcg Documented by: Aspirin (Baby Aspirin) 81 mg PO QDAY [facility] [place] Last Admin: 10/23/18 11:40 Dose: 81 mg Documented by: Atorvastatin Calcium (Lipitor) 20 mg PO QHS [facility] [place] Budesonide (Pulmicort) 0.5 mg IH Q12HRT [facility] [place] Last Admin: 10/24/18 08:01 Dose: 0.5 mg Documented by: Famotidine (Pepcid) 20 mg PO QDAY [facility] [place] Last Admin: 10/23/18 11:37 Dose: 20 mg Documented by: Finasteride (Proscar) 5 mg PO QDAY [facility] [place] Last Admin: 10/23/18 11:38 Dose: 5 mg Documented by: Folic Acid (Folvite) 1 mg PO QDAY [facility] [place] Levofloxacin/Dextrose (Levaquin 500mg/100ml) 500 mg in 100 mls @ 100 mls/hr IV Q24HR [facility] [place]; Protocol Stop: 10/26/18 10:59 Last Admin: 10/23/18 11:29 Dose: 100 mls/hr Documented by: Sodium Chloride (Nacl 0.9% 500 Ml) 500 mls @ 0 mls/hr IV ONCE NR Stop: 01/07/19 23:59 Pantoprazole Sodium 80 mg/ (Sodium Chloride) 100 mls @ 10 mls/hr IV DIRECT [facility] [place] Lisinopril (Zestril) 5 mg PO QDAY [facility] [place] Last Admin: 10/23/18 11:37 Dose: 5 mg Documented by: Megestrol Acetate (Megace) 625 mg PO DAILY [facility] [place] Last Admin: 10/23/18 11:38 Dose: 625 mg Documented by: Metoprolol Tartrate (Lopressor) 12.5 mg PO BID [facility] [place] Prednisone (Deltasone) 40 mg PO QDAY [facility] [place] Last Admin: 10/23/18 11:40 Dose: 40 mg Documented by: Spironolactone (Aldactone) 25 mg PO QDAY [facility] [place] Last Admin: 10/23/18 11:40 Dose: 25 mg Documented by: Tamsulosin HCl (Flomax) 0.4 mg PO BID [facility] [place] Last Admin: 10/23/18 23:04 Dose: 0.4 mg Documented by: medications reviewed/updated as required Review of Systems - Review of Systems All systems: negative Gastrointestinal: melena, no abdominal pain, no nausea, no vomiting, no hematemesis, no hematochezia Exam - Constitutional Vital Signs: Temp Pulse Resp BP Pulse Ox 98.2 F 116 H 18 94/49 89 10/24/18 10:12 10/24/18 10:12 10/24/18 10:12 10/24/18 10:12 10/24/18 10:12 General appearance: no acute distress - Respiratory Respiratory: bilateral: diminished - Cardiovascular Rhythm: other (tachycardia) - Gastrointestinal General gastrointestinal: Present: soft, non-tender, non-distended, normal bowel sounds Rectal Exam: other (black stool (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; Negin SIGNER)) - Labs CBC & Chem 7: 10/24/18 11:14 10/24/18 11:14 Lab Results: Laboratory Results - last 24 hr 10/24/18 10/24/18 11:14 11:14 WBC 7.2 RBC 2.15 L Hgb 6.7 L Hct 20.5 L MCV 95 H MCH 31 MCHC 33 RDW 14.6 Plt Count 192 Sodium 136 L Potassium 4.4 Chloride 101.2 Carbon Dioxide 30 Anion Gap 9 BUN 30 H Creatinine 1.0 Estimated GFR > 60 BUN/Creatinine Ratio 30 Glucose 127 H Calcium 8.1 L Assessment and Plan 1.GIB 2.melena 3.anemia -H/H 6.7/20.5-trending down (transfusion PRBCs pending for today) -continue to monitor H/H and transfuse as needed -hold blood thinning medications (was previously on heparin drip x 48 hours; now d/c) -BM today with black stool per nursing (rectal exam revealed melena)- no hematemesis or hematochezia -etiology unclear- possible ulcer vs other -start on protonix drip -d/c pureed diet, start on clears now then NPO after MN -EGD in am based on progress, however patient is a high risk for endoscopy given multiple co-morbidities (severe CMP, recurrent NSVT, COPD) per cardiology with no immediate cardiac contradictions for proceeding but recommend continuous cardiac monitoring and placement of defibrillator pads during procedure - monitor closely- low threshold to transfer to unit -will follow
[2018-10-24] MEDS: FOLVITE PO SCH (14:17)
[2018-10-24] MEDS: FLOMAX PO SCH ×2 (14:19→21:50)
[2018-10-24] MEDS: ZESTRIL PO SCH (14:23)
[2018-10-24] MEDS: PEPCID PO SCH (14:24)
[2018-10-24] MEDS: DELTASONE PO SCH (14:24)
--- NOTE | 2018-10-24 14:41 | Progress Note ---
Assessment and Plan Pt with worsening anemia and the development of melena. Cardiology asked to re- evaluate pt and provide cardiac risk stratification for endoscopy. Pt is at high cardiovascular risk for endoscopy given multiple co-morbidities, including severe CMP, recurrent NSVT, malnutrition, COPD. There are no immediate cardiac contraindications to proceeding with endoscopy at this time. However, recommend continuous cardiac monitoring and placement of defibrillator pads during endoscopy. Will d/c ASA 81. D/w pt and pt's family members at bedside. The patient has been seen in conjunction with Dr. Foley who agrees with the assessment and plan of care. - Patient Problems (1) Recurrent falls Current Visit: Yes Status: Acute (2) NSTEMI (non-ST elevated myocardial infarction) Onset Date: ~10/19/18 Current Visit: Yes Status: Acute (3) Cardiomyopathy Current Visit: Yes Status: Chronic (4) Pneumonia Current Visit: Yes Status: Acute (5) COPD (chronic obstructive pulmonary disease) Current Visit: Yes Status: Chronic (6) Weakness of both lower extremities Current Visit: Yes Status: Acute (7) Severe malnutrition Current Visit: Yes Status: Acute (8) CKD (chronic kidney disease) Current Visit: Yes Status: Chronic (9) Hyponatremia Current Visit: Yes Status: Acute (10) Rhabdomyolysis Current Visit: Yes Status: Acute (11) NSVT (nonsustained ventricular tachycardia) Current Visit: Yes Status: Acute (12) GI bleed Current Visit: Yes Status: Acute (13) Anemia Current Visit: Yes Status: Acute Subjective Date of service: 10/24/18 Principal diagnosis: frequent falls Interval history: pt resting in bed, no current cardiac complaints. 31 beat NSVT noted on telemetry today. sister at bedside. pt noted to have several bouts of melena today. Objective Last Vital Signs Temp 98.2 F 10/24/18 10:12 Pulse 112 H 10/24/18 14:23 Resp 18 10/24/18 10:12 BP 94/49 10/24/18 10:12 Pulse Ox 89 10/24/18 10:12 - Physical Examination General: No Apparent Distress, Cachectic HEENT: Positive: PERRL, Normocephaly, Mucus Membranes Moist Neck: Positive: neck supple, trachea midline Cardiac: Positive: Reg Rate and Rhythm, S1/S2 Lungs: Positive: Decreased Breath Sounds Neuro: Positive: Grossly Intact Abdomen: Positive: Soft. Negative: Tender Skin: Negative: Rash, Wound Musculoskeletal: No Pain Extremities: Absent: edema - Labs and Meds CBC 10/24/18 Range/Units 11:14 WBC 7.2 (4.5-11.0) K/mm3 RBC 2.15 L (3.65-5.03) M/mm3 Hgb 6.7 L (11.8-15.2) gm/dl Hct 20.5 L (35.5-45.6) % Plt Count 192 (140-440) K/mm3 Comprehensive Metabolic Panel 10/24/18 Range/Units 11:14 Sodium 136 L (137-145) mmol/L Potassium 4.4 (3.6-5.0) mmol/L Chloride 101.2 (98-107) mmol/L Carbon Dioxide 30 (22-30) mmol/L BUN 30 H (9-20) mg/dL Creatinine 1.0 (0.8-1.5) mg/dL Glucose 127 H (75-100) mg/dL Calcium 8.1 L (8.4-10.2) mg/dL - Imaging and Cardiology EKG: report reviewed, image reviewed Echo: report reviewed (EF 15-20%, LV mod to severely dilated, restrictive diastolic filling, mild to mod MR, mild dilatation of the ascending aorta. )
--- NOTE | 2018-10-24 15:55 | Progress Note ---
Assessment and Plan /Acute GI bleed with anemia - consult GI, stop all heparin.aspirin, protonix drip - plan for EGD tomorrow / Acute respiratory failure, present on admission Likely due to underlying COPD and acute CHF Continue to treat underlying medical condition, wean off oxygen as tolerated / NSTEMI (non-ST elevated myocardial infarction) Likely due to new onset CHF, cardiology consulted 2-D echo showed EF of 15-20%, continue statin, hold Lasix for now Status post heparin drip for 48 hours, cardiology recommended conservative management /New onset CHF with EF 15-20% - We'll follow cardiology recommendation - s/p diuresis, cont supplemental oxygen, supportive care /COPD with acute exacerbation Continue duo nebs, supplemental oxygen, treated for underlying pneumonia /Hyponatremia closely monitor electrolytes, off IV /folate deficiency, replace folate / RLL pneumonia Possible aspiration pneumonia, continue oxygen, IV antibiotics and follow cultures Supportive care /Severe malnutrition Nutrition supplements, and nutrition consulted / Rhabdomyolysis Probably secondary to fall and status post gentle IV hydration, closely monitor renal function and avoid nephrotoxins / Thrombocytopenia Probably secondary to history of prostate cancer, closely monitor /Recurrent falls Fall precautions, physical therapy occupational therapy rehabilitation / Discharge planning issues Possible acute versus subacute versus SNF placement when medically stable / DVT prophylaxis Lovenox[closely monitor platelets] Disposition: FAMILY REQUESTED snf Physical exam: General appearance: Present: mild distress, cachectic, disheveled - EENT Eyes: Present: PERRL, EOM intact - Neck Neck: Present: supple, normal ROM - Respiratory Respiratory effort: normal Respiratory: right: rhonchi, bilateral: diminished, negative: rales, wheezing - Cardiovascular Rhythm: regular Heart Sounds: Present: S1 & S2 - Extremities Extremities: no ischemia Extremity abnormal: edema - Abdominal General gastrointestinal: Present: soft, non-tender, non-distended, normal bowel sounds - Integumentary Integumentary: Present: clear, warm - Musculoskeletal Musculoskeletal: strength equal bilaterally, generalized weakness - Psychiatric Psychiatric: appropriate mood/affect, cooperative - Neurologic Neurologic: moves all extremities, other Subjective Date of service: 10/24/18 Principal diagnosis: frequent falls Interval history: Patient seen and examined. Medical records and medication list reviewed. No acute event overnight noted by the RN. Patient having black stool, hb dropped to 6.7 Discussed plan of care at bedside with patient and his sister Objective - Constitutional Vitals: Vital Signs - 12hr 10/24/18 10/24/18 10/24/18 04:05 08:50 09:00 Temperature 98.7 F Pulse Rate 109 H Pulse Rate [ 93 H 83 Anterior Bilateral] Pulse Rate [ Bilateral] Respiratory 17 Rate Respiratory 18 18 Rate [Anterior Bilateral] Respiratory Rate [Bilateral ] Blood Pressure 106/51 O2 Sat by Pulse 93 Oximetry 10/24/18 10/24/18 10/24/18 10:00 10:12 13:59 Temperature 98.2 F Pulse Rate 116 H 112 H Pulse Rate [ Anterior Bilateral] Pulse Rate [ Bilateral] Respiratory 18 Rate Respiratory Rate [Anterior Bilateral] Respiratory Rate [Bilateral ] Blood Pressure 94/49 O2 Sat by Pulse 92 89 Oximetry 10/24/18 10/24/18 10/24/18 14:23 15:40 15:51 Temperature Pulse Rate 112 H Pulse Rate [ 116 H 107 H Anterior Bilateral] Pulse Rate [ 107 H Bilateral] Respiratory Rate Respiratory 18 20 Rate [Anterior Bilateral] Respiratory 20 Rate [Bilateral ] Blood Pressure O2 Sat by Pulse Oximetry - Labs CBC & Chem 7: 10/25/18 05:58 10/24/18 11:14 Labs: Abnormal lab results 10/24/18 10/24/18 Range/Units 11:14 11:14 RBC 2.15 L (3.65-5.03) M/mm3 Hgb 6.7 L (11.8-15.2) gm/dl Hct 20.5 L (35.5-45.6) % MCV 95 H (84-94) fl Sodium 136 L (137-145) mmol/L BUN 30 H (9-20) mg/dL Glucose 127 H (75-100) mg/dL Calcium 8.1 L (8.4-10.2) mg/dL
[2018-10-24] MEDS: MEGACE PO SCH (16:13)
[2018-10-24] MEDS: PROSCAR PO SCH (16:17)
[2018-10-24] MEDS: PROTONIX 80 MG in NACL 0.9% 100 ML IV SCH (19:11)
--- NOTE | 2018-10-24 19:14 | Progress Note ---
Assessment and Plan Patient weak. Emaciated. On 3 litres O2.O2 saturation 93%.Patient denies shortness of breath or cough. - Patient Problems (1) CHF (congestive heart failure) Current Visit: Yes Status: Acute Qualifiers: Heart failure type: unspecified Heart failure chronicity: unspecified Qualified Code(s): I50.9 - Heart failure, unspecified Plan to address problem: Management as per primary care and cardiology. (2) RLL pneumonia Current Visit: Yes Status: Acute Qualifiers: Pneumonia type: due to unspecified organism Qualified Code(s): J18.1 - Lobar pneumonia, unspecified organism Plan to address problem: Patient is on Levaquin. (3) COPD (chronic obstructive pulmonary disease) Current Visit: Yes Status: Chronic Plan to address problem: O2 3 litres via nasal canula. Albuterol/atrovent aerosol treatments q 6 hours. Continue prednisone Continue Protonix. SCDs Continue Levaquin. (4) Recurrent falls Current Visit: Yes Status: Acute Plan to address problem: Restrained as needed. Subjective Date of service: 10/24/18 Principal diagnosis: frequent falls Interval history: Patient weak. Emaciated. On 3 litres O2.O2 saturation 93%.Patient denies shortness of breath or cough. Objective Vital Signs - 12hr 10/24/18 10/24/18 10/24/18 08:50 09:00 10:00 Temperature Pulse Rate Pulse Rate [ 93 H 83 Anterior Bilateral] Pulse Rate [ Bilateral] Respiratory Rate Respiratory 18 18 Rate [Anterior Bilateral] Respiratory Rate [Bilateral ] Blood Pressure O2 Sat by Pulse 92 Oximetry 10/24/18 10/24/18 10/24/18 10:12 13:59 14:23 Temperature 98.2 F Pulse Rate 116 H 112 H 112 H Pulse Rate [ Anterior Bilateral] Pulse Rate [ Bilateral] Respiratory 18 Rate Respiratory Rate [Anterior Bilateral] Respiratory Rate [Bilateral ] Blood Pressure 94/49 O2 Sat by Pulse 89 Oximetry 10/24/18 10/24/18 10/24/18 15:40 15:51 16:42 Temperature 98.6 F Pulse Rate 107 H Pulse Rate [ 116 H 107 H Anterior Bilateral] Pulse Rate [ 107 H Bilateral] Respiratory 18 Rate Respiratory 18 20 Rate [Anterior Bilateral] Respiratory 20 Rate [Bilateral ] Blood Pressure 108/61 O2 Sat by Pulse 98 Oximetry Constitutional: alert, appears uncomfortable Eyes: non-icteric ENT: oropharynx moist Neck: supple, no lymphadenopathy Ascultation: Right: rhonchi Cardiovascular: regular rate and rhythm Gastrointestinal: normoactive bowel sounds, soft Integumentary: normal Extremities: no cyanosis, no edema Neurologic: non-focal exam, pupils equal and round, CN II-XII normal Psychiatric: depressed CBC and BMP: 10/24/18 11:14 10/24/18 11:14 ABG, PT/INR, D-dimer: PT/INR, D-dimer PT 16.0 Sec. (12.2-14.9) H 10/19/18 19:57 INR 1.24 (0.87-1.13) H 10/19/18 19:57 Abnormal lab findings: Abnormal Labs 10/19/18 10/19/18 10/19/18 04:34 04:34 04:34 RBC 3.60 L Hgb 11.3 L Hct 33.9 L MCV Lymph % (Auto) 10.6 L Hern[place] % (Auto) 11.7 H Lymph # 0.6 L Seg Neutrophils % 77.5 H PT INR APTT 23.0 L Heparin Anti-Xa Level Sodium 126 L Chloride 92.1 L Carbon Dioxide 20 L BUN 35 H Glucose POC Glucose Calcium Magnesium Iron TIBC AST 67 H ALT 77 H Total Creatine Kinase 1300 H CK-MB (CK-2) 15.7 H Troponin T 0.175 H* Total Protein 5.7 L Albumin 3.3 L HDL Cholesterol 60 H Folate Free T4 Crossmatch 10/19/18 10/19/18 10/19/18 13:45 18:23 19:57 RBC Hgb 10.6 L Hct 31.2 L MCV Lymph % (Auto) [place] % (Auto) Lymph # Seg Neutrophils % PT INR APTT Heparin Anti-Xa Level Sodium Chloride Carbon Dioxide BUN Glucose POC Glucose Calcium Magnesium Iron TIBC AST ALT Total Creatine Kinase 881 H 707 H CK-MB (CK-2) 10.6 H 8.7 H Troponin T 0.175 H* 0.198 H* Total Protein Albumin HDL Cholesterol Folate Free T4 Crossmatch 10/19/18 10/20/18 10/20/18 19:57 04:54 04:54 RBC 3.30 L Hgb 10.4 L Hct 30.9 L MCV Lymph % (Auto) [place] % (Auto) 12.0 H Lymph # 0.7 L Seg Neutrophils % 72.8 H PT 16.0 H INR 1.24 H APTT Heparin Anti-Xa Level Sodium 127 L Chloride 97.7 L Carbon Dioxide 21 L BUN 25 H Glucose 102 H POC Glucose Calcium 7.6 L Magnesium Iron TIBC AST 41 H ALT 57 H Total Creatine Kinase 520 H CK-MB (CK-2) Troponin T Total Protein 4.8 L Albumin 2.7 L HDL Cholesterol Folate Free T4 Crossmatch 10/20/18 10/20/18 10/20/18 04:54 06:38 13:07 RBC Hgb Hct MCV Lymph % (Auto) [place] % (Auto) Lymph # Seg Neutrophils % PT INR APTT Heparin Anti-Xa Level 0.16 L 0.27 L Sodium Chloride Carbon Dioxide BUN Glucose POC Glucose 145 H Calcium Magnesium Iron TIBC AST ALT Total Creatine Kinase CK-MB (CK-2) Troponin T Total Protein Albumin HDL Cholesterol Folate Free T4 Crossmatch 10/20/18 10/20/18 10/21/18 13:07 13:07 04:08 RBC Hgb 9.6 L Hct 28.7 L MCV Lymph % (Auto) [place] % (Auto) Lymph # Seg Neutrophils % PT INR APTT Heparin Anti-Xa Level Sodium Chloride Carbon Dioxide BUN Glucose POC Glucose Calcium Magnesium 2.40 H Iron TIBC AST ALT Total Creatine Kinase CK-MB (CK-2) Troponin T Total Protein Albumin HDL Cholesterol Folate Free T4 1.68 H Crossmatch 10/22/18 10/22/18 10/22/18 04:40 04:40 19:57 RBC 2.52 L Hgb 7.9 L Hct 24.0 L MCV 95 H Lymph % (Auto) [place] % (Auto) 11.1 H Lymph # 1.0 L Seg Neutrophils % 70.7 H PT INR APTT Heparin Anti-Xa Level Sodium 135 L D Chloride Carbon Dioxide BUN 47 H Glucose POC Glucose Calcium 7.9 L Magnesium Iron 13 L TIBC 233 L AST ALT Total Creatine Kinase CK-MB (CK-2) Troponin T Total Protein Albumin HDL Cholesterol Folate Free T4 Crossmatch 10/22/18 10/23/18 10/24/18 19:57 06:02 11:14 RBC 2.15 L Hgb 7.4 L 6.7 L Hct 22.6 L 20.5 L MCV 95 H Lymph % (Auto) [place] % (Auto) Lymph # Seg Neutrophils % PT INR APTT Heparin Anti-Xa Level Sodium Chloride Carbon Dioxide BUN Glucose POC Glucose Calcium Magnesium Iron TIBC AST ALT Total Creatine Kinase CK-MB (CK-2) Troponin T Total Protein Albumin HDL Cholesterol Folate 6.57 L Free T4 Crossmatch 10/24/18 10/24/18 11:14 15:30 RBC Hgb Hct MCV Lymph % (Auto) [place] % (Auto) Lymph # Seg Neutrophils % PT INR APTT Heparin Anti-Xa Level Sodium 136 L Chloride Carbon Dioxide BUN 30 H Glucose 127 H POC Glucose Calcium 8.1 L Magnesium Iron TIBC AST ALT Total Creatine Kinase CK-MB (CK-2) Troponin T Total Protein Albumin HDL Cholesterol Folate Free T4 Crossmatch See Detail Chest x-ray: report reviewed (Right pleural effusion and increasing right lower lobe infiltrate.), image reviewed
[2018-10-24] MEDS: LOPRESSOR PO SCH (21:38)
[2018-10-25] MEDS: LOPRESSOR PO SCH ×3 (01:38→21:46)
[2018-10-25] MEDS: PROTONIX 80 MG in NACL 0.9% 100 ML IV SCH ×2 (04:09→13:30)
[2018-10-25 06:22] LABS: Hematocrit 25.4 % (35.5-45.6); Hemoglobin 8.4 gm/dl (11.8-15.2)
[2018-10-25] MEDS: PULMICORT IH SCH ×2 (08:56→21:20)
[2018-10-25] MEDS: DUONEB *Not for PRN Use IH SCH ×4 (08:56→21:20)
[2018-10-25] MEDS: BROVANA NEBU IH SCH ×2 (08:56→21:20)
[2018-10-25] MEDS: LEVAQUIN 500MG/100ML 500 MG/100 ML BAG IV SCH (09:43)
[2018-10-25] MEDS: ALDACTONE PO SCH (10:31)
[2018-10-25] MEDS: DELTASONE PO SCH ×2 (10:31→21:47)
[2018-10-25] MEDS: FLOMAX PO SCH ×2 (10:32→21:47)
[2018-10-25] MEDS: FOLVITE PO SCH (10:32)
[2018-10-25] MEDS: MEGACE PO SCH (10:33)
[2018-10-25] MEDS: ZESTRIL PO SCH (10:33)
[2018-10-25] MEDS: PEPCID PO SCH (10:33)
[2018-10-25] MEDS: PROSCAR PO SCH (10:33)
--- NOTE | 2018-10-25 13:07 | Gastroenterology Progress Note ---
Addendum entered and electronically signed by LEO LIZ MD 10/25/18 19:06: I have personally interviewed and examined the patient. I agree with the above A/P. The patient's melena is resolving, and CBC is improved. Will continue protonix (convert to PO) and advance diet. Continue to avoid endoscopy unless absolutely necessary given cardiac risk. Original Note: Assessment and Plan 1.GIB 2.melena 3.anemia -H/H 8.4/25.4-rise s/p transfusion PRBCs yesterday -continue to monitor H/H and transfuse as needed -hold blood thinning medications (was previously on heparin drip x 48 hours; now d/c) -no active signs of bleeding overnight or this am per nursing- currently HD stable -etiology unclear- possible ulcer vs other -will hold off on EGD for now unless overt bleeding develops based on cardiac risk stratification -continue PPI -okay to start on full liquids -continue supportive care -will follow Subjective Date of service: 10/25/18 Principal diagnosis: GI bleed Interval history: Patient resting in bed w/o acute distress. No active signs of bleeding overnight or this am per nursing. Denies abd pain or N/V. Objective - Constitutional Vitals: Temp Pulse Resp BP Pulse Ox 97.9 F 114 H 18 134/78 93 10/25/18 12:05 10/25/18 12:05 10/25/18 12:05 10/25/18 12:05 10/25/18 12:05 General appearance: no acute distress - Respiratory Respiratory: bilateral: diminished (anterior) - Cardiovascular Rhythm: other (tachycardia) - Gastrointestinal General gastrointestinal: Present: soft, non-tender, non-distended, normal bowel sounds - Labs CBC & Chem 7: 10/25/18 05:58 10/24/18 11:14 Labs: Laboratory Results - last 24 hr 10/24/18 10/25/18 15:30 05:58 Hgb 8.4 L Hct 25.4 L Plt Count 199 Blood Type B POSITIVE Antibody Screen Negative Crossmatch See Detail
--- NOTE | 2018-10-25 13:28 | Progress Note ---
Assessment and Plan Patient weak. Emaciated. On 3 litres O2.O2 saturation 93%.Patient denies shortness of breath or cough.Ultrasound of chest reported small bilateral pleural effusions. - Patient Problems (1) CHF (congestive heart failure) Current Visit: Yes Status: Acute Qualifiers: Heart failure type: unspecified Heart failure chronicity: unspecified Qualified Code(s): I50.9 - Heart failure, unspecified Plan to address problem: Management as per primary care and cardiology. (2) RLL pneumonia Current Visit: Yes Status: Acute Qualifiers: Pneumonia type: due to unspecified organism Qualified Code(s): J18.1 - Lobar pneumonia, unspecified organism Plan to address problem: Patient is on Levaquin. (3) COPD (chronic obstructive pulmonary disease) Current Visit: Yes Status: Chronic Plan to address problem: O2 3 litres via nasal canula. Albuterol/atrovent aerosol treatments q 6 hours. Continue prednisone Continue Protonix. SCDs Continue Levaquin. (4) Recurrent falls Current Visit: Yes Status: Acute Plan to address problem: Restrained as needed. Subjective Date of service: 10/25/18 Principal diagnosis: GI bleed Interval history: Patient weak. Emaciated. On 3 litres O2.O2 saturation 93%.Patient denies shortness of breath or cough.Patients ultrasound of chest reported small bilateral pleural effusions. Objective Vital Signs - 12hr 10/25/18 10/25/18 10/25/18 04:24 07:45 08:57 Temperature 98.4 F 97.7 F Pulse Rate 91 H 109 H Pulse Rate [ 97 H Anterior Bilateral] Pulse Rate [ Apical] Pulse Rate [ 100 H Bilateral] Pulse Rate [ Left Radial] Pulse Rate [ Right Radial] Respiratory 17 18 Rate Respiratory 16 Rate [Anterior Bilateral] Respiratory 18 Rate [Bilateral ] Blood Pressure 125/70 123/71 O2 Sat by Pulse 83 L 92 Oximetry 10/25/18 10/25/18 10/25/18 08:59 10:00 10:31 Temperature Pulse Rate 109 H Pulse Rate [ Anterior Bilateral] Pulse Rate [ 109 H Apical] Pulse Rate [ Bilateral] Pulse Rate [ 109 H Left Radial] Pulse Rate [ 109 H Right Radial] Respiratory 18 Rate Respiratory Rate [Anterior Bilateral] Respiratory Rate [Bilateral ] Blood Pressure 123/71 O2 Sat by Pulse 96 97 Oximetry 10/25/18 10/25/1819 10:32 10:33 12:05 Temperature 97.9 F Pulse Rate 109 H 109 H 114 H Pulse Rate [ Anterior Bilateral] Pulse Rate [ Apical] Pulse Rate [ Bilateral] Pulse Rate [ Left Radial] Pulse Rate [ Right Radial] Respiratory 18 Rate Respiratory Rate [Anterior Bilateral] Respiratory Rate [Bilateral ] Blood Pressure 123/71 123/71 134/78 O2 Sat by Pulse 93 Oximetry Constitutional: no acute distress, alert Eyes: non-icteric ENT: oropharynx moist Neck: supple, no lymphadenopathy Ascultation: Right: rhonchi Cardiovascular: regular rate and rhythm Gastrointestinal: normoactive bowel sounds, soft Integumentary: normal Extremities: no cyanosis, no edema Neurologic: non-focal exam, pupils equal and round, CN II-XII normal Psychiatric: depressed CBC and BMP: 10/25/18 05:58 10/24/18 11:14 ABG, PT/INR, D-dimer: PT/INR, D-dimer PT 16.0 Sec. (12.2-14.9) H 10/19/18 19:57 INR 1.24 (0.87-1.13) H 10/19/18 19:57 Abnormal lab findings: Abnormal Labs 10/19/18 10/19/18 10/19/18 04:34 04:34 04:34 RBC 3.60 L Hgb 11.3 L Hct 33.9 L MCV Lymph % (Auto) 10.6 L [place] % (Auto) 11.7 H Lymph # 0.6 L Seg Neutrophils % 77.5 H PT INR APTT 23.0 L Heparin Anti-Xa Level Sodium 126 L Chloride 92.1 L Carbon Dioxide 20 L BUN 35 H Glucose POC Glucose Calcium Magnesium Iron TIBC AST 67 H ALT 77 H Total Creatine Kinase 1300 H CK-MB (CK-2) 15.7 H Troponin T 0.175 H* Total Protein 5.7 L Albumin 3.3 L HDL Cholesterol 60 H Folate Free T4 Crossmatch 10/19/18 10/19/18 10/19/18 13:45 18:23 19:57 RBC Hgb 10.6 L Hct 31.2 L MCV Lymph % (Auto) [place] % (Auto) Lymph # Seg Neutrophils % PT INR APTT Heparin Anti-Xa Level Sodium Chloride Carbon Dioxide BUN Glucose POC Glucose Calcium Magnesium Iron TIBC AST ALT Total Creatine Kinase 881 H 707 H CK-MB (CK-2) 10.6 H 8.7 H Troponin T 0.175 H* 0.198 H* Total Protein Albumin HDL Cholesterol Folate Free T4 Crossmatch 10/19/18 10/20/18 10/20/18 19:57 04:54 04:54 RBC 3.30 L Hgb 10.4 L Hct 30.9 L MCV Lymph % (Auto) [place] % (Auto) 12.0 H Lymph # 0.7 L Seg Neutrophils % 72.8 H PT 16.0 H INR 1.24 H APTT Heparin Anti-Xa Level Sodium 127 L Chloride 97.7 L Carbon Dioxide 21 L BUN 25 H Glucose 102 H POC Glucose Calcium 7.6 L Magnesium Iron TIBC AST 41 H ALT 57 H Total Creatine Kinase 520 H CK-MB (CK-2) Troponin T Total Protein 4.8 L Albumin 2.7 L HDL Cholesterol Folate Free T4 Crossmatch 10/20/18 10/20/18 10/20/18 04:54 06:38 13:07 RBC Hgb Hct MCV Lymph % (Auto) [place] % (Auto) Lymph # Seg Neutrophils % PT INR APTT Heparin Anti-Xa Level 0.16 L 0.27 L Sodium Chloride Carbon Dioxide BUN Glucose POC Glucose 145 H Calcium Magnesium Iron TIBC AST ALT Total Creatine Kinase CK-MB (CK-2) Troponin T Total Protein Albumin HDL Cholesterol Folate Free T4 Crossmatch 10/20/18 10/20/18 10/21/18 13:07 13:07 04:08 RBC Hgb 9.6 L Hct 28.7 L MCV Lymph % (Auto) [place] % (Auto) Lymph # Seg Neutrophils % PT INR APTT Heparin Anti-Xa Level Sodium Chloride Carbon Dioxide BUN Glucose POC Glucose Calcium Magnesium 2.40 H Iron TIBC AST ALT Total Creatine Kinase CK-MB (CK-2) Troponin T Total Protein Albumin HDL Cholesterol Folate Free T4 1.68 H Crossmatch 10/22/18 10/22/18 10/22/18 04:40 04:40 19:57 RBC 2.52 L Hgb 7.9 L Hct 24.0 L MCV 95 H Lymph % (Auto) [place] % (Auto) 11.1 H Lymph # 1.0 L Seg Neutrophils % 70.7 H PT INR APTT Heparin Anti-Xa Level Sodium 135 L D Chloride Carbon Dioxide BUN 47 H Glucose POC Glucose Calcium 7.9 L Magnesium Iron 13 L TIBC 233 L AST ALT Total Creatine Kinase CK-MB (CK-2) Troponin T Total Protein Albumin HDL Cholesterol Folate Free T4 Crossmatch 10/22/18 10/23/18 10/24/18 19:57 06:02 11:14 RBC 2.15 L Hgb 7.4 L 6.7 L Hct 22.6 L 20.5 L MCV 95 H Lymph % (Auto) [place] % (Auto) Lymph # Seg Neutrophils % PT INR APTT Heparin Anti-Xa Level Sodium Chloride Carbon Dioxide BUN Glucose POC Glucose Calcium Magnesium Iron TIBC AST ALT Total Creatine Kinase CK-MB (CK-2) Troponin T Total Protein Albumin HDL Cholesterol Folate 6.57 L Free T4 Crossmatch 10/24/18 10/24/18 10/25/18 11:14 15:30 05:58 RBC Hgb 8.4 L Hct 25.4 L MCV Lymph % (Auto) [place] % (Auto) Lymph # Seg Neutrophils % PT INR APTT Heparin Anti-Xa Level Sodium 136 L Chloride Carbon Dioxide BUN 30 H Glucose 127 H POC Glucose Calcium 8.1 L Magnesium Iron TIBC AST ALT Total Creatine Kinase CK-MB (CK-2) Troponin T Total Protein Albumin HDL Cholesterol Folate Free T4 Crossmatch See Detail
--- NOTE | 2018-10-25 13:50 | Progress Note ---
Assessment and Plan Currently stable cardiac status. GI team to hold off on endoscopy at this time. Continue with medical management. Nothing further to add from cardiac perspective. Will sign off. Recommend pt follow up in our office with Dr. Bo within 1-2 weeks of hospital discharge ([phone]). The patient has been seen in conjunction with Dr. Foley who agrees with the assessment and plan of care. - Patient Problems (1) Recurrent falls Current Visit: Yes Status: Acute (2) NSTEMI (non-ST elevated myocardial infarction) Onset Date: ~10/19/18 Current Visit: Yes Status: Acute (3) Cardiomyopathy Current Visit: Yes Status: Chronic (4) Pneumonia Current Visit: Yes Status: Acute (5) COPD (chronic obstructive pulmonary disease) Current Visit: Yes Status: Chronic (6) Weakness of both lower extremities Current Visit: Yes Status: Acute (7) Severe malnutrition Current Visit: Yes Status: Acute (8) CKD (chronic kidney disease) Current Visit: Yes Status: Chronic (9) Hyponatremia Current Visit: Yes Status: Acute (10) Rhabdomyolysis Current Visit: Yes Status: Acute (11) NSVT (nonsustained ventricular tachycardia) Current Visit: Yes Status: Acute (12) GI bleed Current Visit: Yes Status: Acute (13) Anemia Current Visit: Yes Status: Acute Subjective Date of service: 10/25/18 Principal diagnosis: GI bleed Interval history: pt resting in bed, no current cardiac complaints. protonix gtt infusing. Objective Last Vital Signs Temp 97.9 F 10/25/18 12:05 Pulse 114 H 10/25/18 12:05 Resp 18 10/25/18 12:05 BP 134/78 10/25/18 12:05 Pulse Ox 93 10/25/18 12:05 - Physical Examination General: No Apparent Distress, Cachectic HEENT: Positive: PERRL, Normocephaly, Mucus Membranes Moist Neck: Positive: neck supple, trachea midline Cardiac: Positive: Reg Rate and Rhythm, S1/S2 Lungs: Positive: Decreased Breath Sounds Neuro: Positive: Grossly Intact Abdomen: Positive: Soft. Negative: Tender Skin: Negative: Rash, Wound Musculoskeletal: No Pain Extremities: Absent: edema - Labs and Meds CBC 10/25/18 Range/Units 05:58 Hgb 8.4 L (11.8-15.2) gm/dl Hct 25.4 L (35.5-45.6) % Plt Count 199 (140-440) K/mm3 - Imaging and Cardiology EKG: report reviewed, image reviewed Echo: report reviewed (EF 15-20%, LV mod to severely dilated, restrictive diasto lic filling, mild to mod MR, mild dilatation of the ascending aorta. )
--- NOTE | 2018-10-25 15:21 | Progress Note ---
Assessment and Plan /Acute GI bleed with anemia - consulted GI, stopped all heparin.aspirin, - placed on protonix drip, transfused one unit of PRBC - hold EGD for now, monitor H/H / Acute respiratory failure, present on admission Likely due to underlying COPD and acute CHF Continue to treat underlying medical condition, wean off oxygen as tolerated / NSTEMI (non-ST elevated myocardial infarction) Likely due to new onset CHF, cardiology consulted 2-D echo showed EF of 15-20%, continue statin, hold Lasix for now Status post heparin drip for 48 hours, cardiology recommended conservative management /New onset CHF with EF 15-20% - We'll follow cardiology recommendation - s/p diuresis, cont supplemental oxygen, supportive care /COPD with acute exacerbation Continue duo nebs, supplemental oxygen, treated for underlying pneumonia /Hyponatremia closely monitor electrolytes, off IV /folate deficiency, replace folate / RLL pneumonia Possible aspiration pneumonia, continue oxygen, IV antibiotics and follow cultures Supportive care /Severe malnutrition Nutrition supplements, and nutrition consulted / Rhabdomyolysis Probably secondary to fall and status post gentle IV hydration, closely monitor renal function and avoid nephrotoxins / Thrombocytopenia Probably secondary to history of prostate cancer, closely monitor /Recurrent falls Fall precautions, physical therapy occupational therapy rehabilitation / Discharge planning issues Possible acute versus subacute versus SNF placement when medically stable / DVT prophylaxis Lovenox[closely monitor platelets] Disposition: FAMILY REQUESTED snf Physical exam: General appearance: Present: mild distress, cachectic, disheveled - EENT Eyes: Present: PERRL, EOM intact - Neck Neck: Present: supple, normal ROM - Respiratory Respiratory effort: normal Respiratory: right: rhonchi, bilateral: diminished, negative: rales, wheezing - Cardiovascular Rhythm: regular Heart Sounds: Present: S1 & S2 - Extremities Extremities: no ischemia Extremity abnormal: edema - Abdominal General gastrointestinal: Present: soft, non-tender, non-distended, normal bowel sounds - Integumentary Integumentary: Present: clear, warm - Musculoskeletal Musculoskeletal: strength equal bilaterally, generalized weakness - Psychiatric Psychiatric: appropriate mood/affect, cooperative - Neurologic Neurologic: moves all extremities, other Subjective Date of service: 10/25/18 Principal diagnosis: frequent falls Interval history: Patient seen and examined. Medical records and medication list reviewed. No acute event overnight noted by the RN. H/h stable after transfusion, no further active bleeding Discussed plan of care at bedside with patient, EGD cancelled Objective - Constitutional Vitals: Vital Signs - 12hr 10/25/18 10/25/18 10/25/18 04:24 07:45 08:57 Temperature 98.4 F 97.7 F Pulse Rate 91 H 109 H Pulse Rate [ Anterior Bilateral Throughout] Pulse Rate [ 97 H Anterior Bilateral] Pulse Rate [ Apical] Pulse Rate [ 100 H Bilateral] Pulse Rate [ Left Radial] Pulse Rate [ Posterior Bilateral Throughout] Pulse Rate [ Right Radial] Respiratory 17 18 Rate Respiratory Rate [Anterior Bilateral Throughout] Respiratory 16 Rate [Anterior Bilateral] Respiratory 18 Rate [Bilateral ] Respiratory Rate [Posterior Bilateral Throughout] Blood Pressure 125/70 123/71 O2 Sat by Pulse 83 L 92 Oximetry 10/25/18 10/25/18 10/25/18 08:59 10:00 10:31 Temperature Pulse Rate 109 H Pulse Rate [ Anterior Bilateral Throughout] Pulse Rate [ Anterior Bilateral] Pulse Rate [ 109 H Apical] Pulse Rate [ Bilateral] Pulse Rate [ 109 H Left Radial] Pulse Rate [ Posterior Bilateral Throughout] Pulse Rate [ 109 H Right Radial] Respiratory 18 Rate Respiratory Rate [Anterior Bilateral Throughout] Respiratory Rate [Anterior Bilateral] Respiratory Rate [Bilateral ] Respiratory Rate [Posterior Bilateral Throughout] Blood Pressure 123/71 O2 Sat by Pulse 96 97 Oximetry 10/25/18 10/25/18 10/25/18 10:32 10:33 12:05 Temperature 97.9 F Pulse Rate 109 H 109 H 114 H Pulse Rate [ Anterior Bilateral Throughout] Pulse Rate [ Anterior Bilateral] Pulse Rate [ Apical] Pulse Rate [ Bilateral] Pulse Rate [ Left Radial] Pulse Rate [ Posterior Bilateral Throughout] Pulse Rate [ Right Radial] Respiratory 18 Rate Respiratory Rate [Anterior Bilateral Throughout] Respiratory Rate [Anterior Bilateral] Respiratory Rate [Bilateral ] Respiratory Rate [Posterior Bilateral Throughout] Blood Pressure 123/71 123/71 134/78 O2 Sat by Pulse 93 Oximetry 10/25/18 10/25/18 13:51 13:53 Temperature Pulse Rate Pulse Rate [ 105 H Anterior Bilateral Throughout] Pulse Rate [ Anterior Bilateral] Pulse Rate [ Apical] Pulse Rate [ Bilateral] Pulse Rate [ Left Radial] Pulse Rate [ 110 H Posterior Bilateral Throughout] Pulse Rate [ Right Radial] Respiratory Rate Respiratory 18 Rate [Anterior Bilateral Throughout] Respiratory Rate [Anterior Bilateral] Respiratory Rate [Bilateral ] Respiratory 16 Rate [Posterior Bilateral Throughout] Blood Pressure O2 Sat by Pulse 96 Oximetry - Labs CBC & Chem 7: 10/26/18 05:17 10/26/18 05:17 Labs: Abnormal lab results 10/24/18 10/25/18 Range/Units 15:30 05:58 Hgb 8.4 L (11.8-15.2) gm/dl Hct 25.4 L (35.5-45.6) % Crossmatch See Detail
[2018-10-25] MEDS: PROTONIX PO SCH (21:47)
[2018-10-26] MEDS: DUONEB *Not for PRN Use IH SCH ×4 (02:04→21:08)
[2018-10-26 05:54] LABS: Basophils % (Auto) 0.1 % (0.0-1.8); Hematocrit 26.3 % (35.5-45.6); Hemoglobin 8.6 gm/dl (11.8-15.2); Lymphocytes # (Auto) 0.6 K/mm3 (1.2-5.4); Lymphocytes % (Auto) 7.3 % (13.4-35.0); Mean Corpuscular HGB Conc 33 % (32-34); Mean Corpuscular Volume 94 fl (84-94); Monocytes # (Auto) 0.4 K/mm3 (0.0-0.8); Monocytes % (Auto) 5.8 % (0.0-7.3); Platelet Count 203 K/mm3 (140-440); Red Blood Count 2.79 M/mm3 (3.65-5.03); Red Cell Distribution Width 14.9 % (13.2-15.2)
[2018-10-26 06:03] LABS: BUN/Creatinine Ratio 23; Blood Urea Nitrogen 21 mg/dL (9-20); Calcium 8.1 mg/dL (8.4-10.2); Hemolysis Index 0
--- NOTE | 2018-10-26 08:21 | Progress Note ---
Assessment and Plan Patient weak. Emaciated. Patient sleeping at this time On 2 litres O2.O2 saturation 100%.No acute respiratory distress.Patients ultrasound of chest reported small bilateral pleural effusions. - Patient Problems (1) CHF (congestive heart failure) Current Visit: Yes Status: Acute Qualifiers: Heart failure type: unspecified Heart failure chronicity: unspecified Qualified Code(s): I50.9 - Heart failure, unspecified Plan to address problem: Management as per primary care and cardiology. (2) RLL pneumonia Current Visit: Yes Status: Acute Qualifiers: Pneumonia type: due to unspecified organism Qualified Code(s): J18.1 - Lobar pneumonia, unspecified organism Plan to address problem: Patient is on Levaquin. Repeating chest xray PA and Lateral. (3) COPD (chronic obstructive pulmonary disease) Current Visit: Yes Status: Chronic Plan to address problem: O2 2 litres via nasal canula. Albuterol/atrovent aerosol treatments q 6 hours. Continue prednisone Continue Protonix. SCDs Continue Levaquin. (4) Recurrent falls Current Visit: Yes Status: Acute Plan to address problem: Restrained as needed. Management as per primary care. Subjective Date of service: 10/26/18 Principal diagnosis: frequent falls Interval history: Patient weak. Emaciated. Patient sleeping at this time On 2 litres O2.O2 saturat ion 100%.No acute respiratory distress.Patients ultrasound of chest reported small bilateral pleural effusions. Objective Vital Signs - 12hr 10/25/18 10/25/18 10/25/18 21:20 21:23 21:30 Temperature Pulse Rate Pulse Rate [ 109 H 111 H Posterior Bilateral Throughout] Respiratory Rate Respiratory 18 18 Rate [Posterior Bilateral Throughout] Blood Pressure O2 Sat by Pulse 98 Oximetry 10/26/18 00:14 Temperature 98.2 F Pulse Rate 97 H Pulse Rate [ Posterior Bilateral Throughout] Respiratory 18 Rate Respiratory Rate [Posterior Bilateral Throughout] Blood Pressure 97/58 O2 Sat by Pulse 100 Oximetry Constitutional: no acute distress, asleep Eyes: non-icteric ENT: oropharynx moist Neck: supple, no lymphadenopathy Ascultation: Right: rhonchi Cardiovascular: regular rate and rhythm Gastrointestinal: normoactive bowel sounds, soft Integumentary: normal Extremities: no cyanosis, no edema Neurologic: non-focal exam, pupils equal and round, CN II-XII normal Psychiatric: depressed CBC and BMP: 10/26/18 05:17 10/26/18 05:17 ABG, PT/INR, D-dimer: PT/INR, D-dimer PT 16.0 Sec. (12.2-14.9) H 10/19/18 19:57 INR 1.24 (0.87-1.13) H 10/19/18 19:57 Abnormal lab findings: Abnormal Labs 10/19/18 10/19/18 10/19/18 04:34 04:34 04:34 RBC 3.60 L Hgb 11.3 L Hct 33.9 L MCV Lymph % (Auto) 10.6 L [place] % (Auto) 11.7 H Lymph # 0.6 L Seg Neutrophils % 77.5 H PT INR APTT 23.0 L Heparin Anti-Xa Level Sodium 126 L Potassium Chloride 92.1 L Carbon Dioxide 20 L BUN 35 H Glucose POC Glucose Calcium Magnesium Iron TIBC AST 67 H ALT 77 H Total Creatine Kinase 1300 H CK-MB (CK-2) 15.7 H Troponin T 0.175 H* Total Protein 5.7 L Albumin 3.3 L HDL Cholesterol 60 H Folate Free T4 Crossmatch 10/19/18 10/19/18 10/19/18 13:45 18:23 19:57 RBC Hgb 10.6 L Hct 31.2 L MCV Lymph % (Auto) [place] % (Auto) Lymph # Seg Neutrophils % PT INR APTT Heparin Anti-Xa Level Sodium Potassium Chloride Carbon Dioxide BUN Glucose POC Glucose Calcium Magnesium Iron TIBC AST ALT Total Creatine Kinase 881 H 707 H CK-MB (CK-2) 10.6 H 8.7 H Troponin T 0.175 H* 0.198 H* Total Protein Albumin HDL Cholesterol Folate Free T4 Crossmatch 10/19/18 10/20/18 10/20/18 19:57 04:54 04:54 RBC 3.30 L Hgb 10.4 L Hct 30.9 L MCV Lymph % (Auto) [place] % (Auto) 12.0 H Lymph # 0.7 L Seg Neutrophils % 72.8 H PT 16.0 H INR 1.24 H APTT Heparin Anti-Xa Level Sodium 127 L Potassium Chloride 97.7 L Carbon Dioxide 21 L BUN 25 H Glucose 102 H POC Glucose Calcium 7.6 L Magnesium Iron TIBC AST 41 H ALT 57 H Total Creatine Kinase 520 H CK-MB (CK-2) Troponin T Total Protein 4.8 L Albumin 2.7 L HDL Cholesterol Folate Free T4 Crossmatch 10/20/18 10/20/18 10/20/18 04:54 06:38 13:07 RBC Hgb Hct MCV Lymph % (Auto) [place] % (Auto) Lymph # Seg Neutrophils % PT INR APTT Heparin Anti-Xa Level 0.16 L 0.27 L Sodium Potassium Chloride Carbon Dioxide BUN Glucose POC Glucose 145 H Calcium Magnesium Iron TIBC AST ALT Total Creatine Kinase CK-MB (CK-2) Troponin T Total Protein Albumin HDL Cholesterol Folate Free T4 Crossmatch 10/20/18 10/20/18 10/21/18 13:07 13:07 04:08 RBC Hgb 9.6 L Hct 28.7 L MCV Lymph % (Auto) [place] % (Auto) Lymph # Seg Neutrophils % PT INR APTT Heparin Anti-Xa Level Sodium Potassium Chloride Carbon Dioxide BUN Glucose POC Glucose Calcium Magnesium 2.40 H Iron TIBC AST ALT Total Creatine Kinase CK-MB (CK-2) Troponin T Total Protein Albumin HDL Cholesterol Folate Free T4 1.68 H Crossmatch 10/22/18 10/22/18 10/22/18 04:40 04:40 19:57 RBC 2.52 L Hgb 7.9 L Hct 24.0 L MCV 95 H Lymph % (Auto) [place] % (Auto) 11.1 H Lymph # 1.0 L Seg Neutrophils % 70.7 H PT INR APTT Heparin Anti-Xa Level Sodium 135 L D Potassium Chloride Carbon Dioxide BUN 47 H Glucose POC Glucose Calcium 7.9 L Magnesium Iron 13 L TIBC 233 L AST ALT Total Creatine Kinase CK-MB (CK-2) Troponin T Total Protein Albumin HDL Cholesterol Folate Free T4 Crossmatch 10/22/18 10/23/18 10/24/18 19:57 06:02 11:14 RBC 2.15 L Hgb 7.4 L 6.7 L Hct 22.6 L 20.5 L MCV 95 H Lymph % (Auto) [place] % (Auto) Lymph # Seg Neutrophils % PT INR APTT Heparin Anti-Xa Level Sodium Potassium Chloride Carbon Dioxide BUN Glucose POC Glucose Calcium Magnesium Iron TIBC AST ALT Total Creatine Kinase CK-MB (CK-2) Troponin T Total Protein Albumin HDL Cholesterol Folate 6.57 L Free T4 Crossmatch 10/24/18 10/24/18 10/25/18 11:14 15:30 05:58 RBC Hgb 8.4 L Hct 25.4 L MCV Lymph % (Auto) [place] % (Auto) Lymph # Seg Neutrophils % PT INR APTT Heparin Anti-Xa Level Sodium 136 L Potassium Chloride Carbon Dioxide BUN 30 H Glucose 127 H POC Glucose Calcium 8.1 L Magnesium Iron TIBC AST ALT Total Creatine Kinase CK-MB (CK-2) Troponin T Total Protein Albumin HDL Cholesterol Folate Free T4 Crossmatch See Detail 10/26/18 10/26/18 05:17 05:17 RBC 2.79 L Hgb 8.6 L Hct 26.3 L MCV Lymph % (Auto) 7.3 L [place] % (Auto) Lymph # 0.6 L Seg Neutrophils % 86.8 H PT INR APTT Heparin Anti-Xa Level Sodium Potassium 5.1 H Chloride Carbon Dioxide BUN 21 H Glucose 108 H POC Glucose Calcium 8.1 L Magnesium Iron TIBC AST ALT Total Creatine Kinase CK-MB (CK-2) Troponin T Total Protein Albumin HDL Cholesterol Folate Free T4 Crossmatch
--- NOTE | 2018-10-26 09:18 | XRay Report ---
ROUTINE CHEST, TWO VIEWS: HISTORY: Followup on pneumonia. Compared to 10/21/18. Small bilateral pleural effusions have decreased by 50%. Decreased bibasilar atelectasis is also demonstrated. No convincing infiltrate is identified. Heart size and pulmonary vascularity are borderline. No pneumothorax. IMPRESSION: No pneumonia is identified. Mild improvement in CHF since 10/21/18.
[2018-10-26] MEDS: BROVANA NEBU IH SCH ×2 (09:20→21:07)
[2018-10-26] MEDS: PULMICORT IH SCH ×2 (09:20→21:07)
[2018-10-26] MEDS: LEVAQUIN 500MG/100ML 500 MG/100 ML BAG IV SCH (09:26)
[2018-10-26] MEDS: ALDACTONE PO SCH (09:27)
[2018-10-26] MEDS: FOLVITE PO SCH (09:27)
[2018-10-26] MEDS: LOPRESSOR PO SCH ×2 (09:27→21:04)
[2018-10-26] MEDS: FLOMAX PO SCH ×2 (09:27→21:30)
[2018-10-26] MEDS: DELTASONE PO SCH (09:27)
[2018-10-26] MEDS: PROTONIX PO SCH ×2 (09:27→21:30)
[2018-10-26] MEDS: ZESTRIL PO SCH (09:27)
[2018-10-26] MEDS: PROSCAR PO SCH (09:28)
--- NOTE | 2018-10-26 12:54 | Gastroenterology Progress Note ---
Addendum entered and electronically signed by LEO LIZ MD 10/26/18 22:47: I have personally interviewed and examined the patient. I agree with the above A/P. Stabilized and tolerating regular diet with no further melena. OK to give cardiac ASA, but would avoid other blood thinners until hct >30. Original Note: Assessment and Plan 1.GIB 2.melena 3.anemia -H/H 8.6/26.3-trending up -continue to monitor H/H and transfuse as needed -no active signs of bleeding-melena resolved -etiology unclear- possible ulcer vs other -no plans for EGD- will avoid unless absolutely necessary given cardiac risk -continue PPI -continue supportive care -patient is okay to be d/c per GI standpoint on PPI with follow up in clinic in ~2 weeks Subjective Date of service: 10/26/18 Principal diagnosis: GIB Interval history: Patient resting in bed w/o acute distress. Family at bedside. No active signs of bleeding overnight or this am per nursing. Denies abd pain or N/V. Objective - Constitutional Vitals: Temp Pulse Resp BP Pulse Ox 99.0 F 95 H 20 79/43 94 10/26/18 12:30 10/26/18 12:30 10/26/18 12:30 10/26/18 12:30 10/26/18 12:30 General appearance: no acute distress - Respiratory Respiratory: bilateral: diminished - Cardiovascular Rhythm: regular Heart Sounds: Present: S1 & S2 - Gastrointestinal General gastrointestinal: Present: soft, non-tender, non-distended, normal bowel sounds - Labs CBC & Chem 7: 10/26/18 05:17 10/26/18 05:17 Labs: Laboratory Results - last 24 hr 10/26/18 10/26/18 05:17 05:17 WBC 7.6 RBC 2.79 L Hgb 8.6 L Hct 26.3 L MCV 94 MCH 31 MCHC 33 RDW 14.9 Plt Count 203 Lymph % (Auto) 7.3 L [place] % (Auto) 5.8 Eos % (Auto) 0.0 Baso % (Auto) 0.1 Lymph # 0.6 L [place] # 0.4 Eos # 0.0 Baso # 0.0 Seg Neutrophils % 86.8 H Seg Neutrophils # 6.6 Sodium 140 Potassium 5.1 H Chloride 103.9 Carbon Dioxide 28 Anion Gap 13 BUN 21 H Creatinine 0.9 Estimated GFR > 60 BUN/Creatinine Ratio 23 Glucose 108 H Calcium 8.1 L
[2018-10-26] MEDS: MEGACE PO SCH (15:00)
[2018-10-26] MEDS: THERAGRAN Tab PO SCH (15:01)
[2018-10-26] MEDS: TYLENOL PO PRN (15:06)
--- NOTE | 2018-10-26 16:05 | Progress Note ---
Assessment and Plan /Acute GI bleed with anemia - consulted GI, stopped all heparin.aspirin, - s/p protonix drip, transfused one unit of PRBC - monitor H/H, no plans for EGD- unless absolutely necessary given cardiac risk - cont PPI / Acute respiratory failure, present on admission Likely due to underlying COPD and acute CHF Continue to treat underlying medical condition, wean off oxygen as tolerated / NSTEMI (non-ST elevated myocardial infarction) Likely due to new onset CHF, cardiology consulted 2-D echo showed EF of 15-20%, continue statin, hold Lasix for now Status post heparin drip for 48 hours, cardiology recommended conservative management /New onset CHF with EF 15-20% - We'll follow cardiology recommendation - s/p diuresis, cont supplemental oxygen, supportive care /COPD with acute exacerbation Continue duo nebs, supplemental oxygen, treated for underlying pneumonia /Hyponatremia closely monitor electrolytes, off IV /folate deficiency, replace folate / RLL pneumonia Possible aspiration pneumonia, continue oxygen, IV antibiotics and follow cultures Supportive care /Severe malnutrition Nutrition supplements, and nutrition consulted / Rhabdomyolysis Probably secondary to fall and status post gentle IV hydration, closely monitor renal function and avoid nephrotoxins / Thrombocytopenia Probably secondary to history of prostate cancer, closely monitor /Recurrent falls Fall precautions, physical therapy occupational therapy rehabilitation / Discharge planning issues Possible acute versus subacute versus SNF placement when medically stable / DVT prophylaxis SCD Disposition: FAMILY REQUESTED snf, CM consulted Physical exam: General appearance: Present: mild distress, cachectic, disheveled - EENT Eyes: Present: PERRL, EOM intact - Neck Neck: Present: supple, normal ROM - Respiratory Respiratory effort: normal Respiratory: right: rhonchi, bilateral: diminished, negative: rales, wheezing - Cardiovascular Rhythm: regular Heart Sounds: Present: S1 & S2 - Extremities Extremities: no ischemia Extremity abnormal: edema - Abdominal General gastrointestinal: Present: soft, non-tender, non-distended, normal bowel sounds - Integumentary Integumentary: Present: clear, warm - Musculoskeletal Musculoskeletal: strength equal bilaterally, generalized weakness - Psychiatric Psychiatric: appropriate mood/affect, cooperative - Neurologic Neurologic: moves all extremities, other Subjective Date of service: 10/26/18 Principal diagnosis: frequent falls Interval history: Patient seen and examined. Medical records and medication list reviewed. No acute event overnight noted by the RN. H/h stable after transfusion, no further active bleeding Discussed plan of care at bedside with patient and his sister, waiting on placement Objective - Constitutional Vitals: Vital Signs - 12hr 10/26/18 10/26/18 10/26/18 04:54 09:20 09:26 Temperature 98.3 F Pulse Rate 88 Pulse Rate [ 98 H Anterior Bilateral Throughout] Pulse Rate [ 98 H Posterior Bilateral Throughout] Respiratory 18 Rate Respiratory 18 Rate [Anterior Bilateral Throughout] Respiratory 18 Rate [Posterior Bilateral Throughout] Blood Pressure 112/68 O2 Sat by Pulse 98 99 Oximetry 10/26/18 10/26/18 10/26/18 09:30 10:08 12:30 Temperature 99.0 F Pulse Rate 99 H 95 H Pulse Rate [ 96 H Anterior Bilateral Throughout] Pulse Rate [ Posterior Bilateral Throughout] Respiratory 20 20 Rate Respiratory 18 Rate [Anterior Bilateral Throughout] Respiratory Rate [Posterior Bilateral Throughout] Blood Pressure 98/59 79/43 O2 Sat by Pulse 96 94 Oximetry 10/26/18 10/26/18 15:50 16:01 Temperature Pulse Rate Pulse Rate [ 108 H 108 H Anterior Bilateral Throughout] Pulse Rate [ 108 H 108 H Posterior Bilateral Throughout] Respiratory Rate Respiratory 18 18 Rate [Anterior Bilateral Throughout] Respiratory 18 18 Rate [Posterior Bilateral Throughout] Blood Pressure O2 Sat by Pulse Oximetry - Labs CBC & Chem 7: 10/27/18 08:46 10/27/18 08:46 Labs: Abnormal lab results 10/26/18 10/26/18 Range/Units 05:17 05:17 RBC 2.79 L (3.65-5.03) M/mm3 Hgb 8.6 L (11.8-15.2) gm/dl Hct 26.3 L (35.5-45.6) % Lymph % (Auto) 7.3 L (13.4-35.0) % Lymph # 0.6 L (1.2-5.4) K/mm3 Seg Neutrophils % 86.8 H (40.0-70.0) % Potassium 5.1 H (3.6-5.0) mmol/L BUN 21 H (9-20) mg/dL Glucose 108 H (75-100) mg/dL Calcium 8.1 L (8.4-10.2) mg/dL
[2018-10-26] MEDS ORDERED: NACL 0.9% 250ML 250 ML IV ONE (20:52)
[2018-10-26 21:40] LABS: Hematocrit 22.3 % (35.5-45.6); Hemoglobin 7.4 gm/dl (11.8-15.2)
[2018-10-26] MEDS ORDERED: NACL 0.45% 1000 ML 1,000 ML IV SCH (23:00)
[2018-10-27] MEDS: DUONEB *Not for PRN Use IH SCH ×4 (02:03→19:38)
[2018-10-27] MEDS: PULMICORT IH SCH ×2 (08:39→19:38)
[2018-10-27] MEDS: BROVANA NEBU IH SCH ×2 (08:39→19:38)
[2018-10-27] MEDS: MEGACE PO SCH (09:20)
[2018-10-27] MEDS: ZESTRIL PO SCH (09:20)
[2018-10-27] MEDS: FOLVITE PO SCH (09:21)
[2018-10-27] MEDS: FLOMAX PO SCH ×2 (09:21→21:59)
[2018-10-27] MEDS: LOPRESSOR PO SCH ×3 (09:21→21:16)
[2018-10-27] MEDS: THERAGRAN Tab PO SCH (09:21)
[2018-10-27] MEDS: DELTASONE PO SCH (09:21)
[2018-10-27] MEDS: ALDACTONE PO SCH ×2 (09:21→10:00)
[2018-10-27] MEDS: PROTONIX PO SCH ×2 (09:21→21:59)
[2018-10-27] MEDS: PROSCAR PO SCH (09:22)
[2018-10-27 09:41] LABS: Hematocrit 24.4 % (35.5-45.6); Mean Corpuscular HGB Conc 33 % (32-34); Mean Corpuscular Volume 93 fl (84-94); Platelet Count 209 K/mm3 (140-440); Red Blood Count 2.63 M/mm3 (3.65-5.03); Red Cell Distribution Width 14.8 % (13.2-15.2)
[2018-10-27 09:53] LABS: BUN/Creatinine Ratio 24; Blood Urea Nitrogen 26 mg/dL (9-20); Calcium 7.7 mg/dL (8.4-10.2); Hemolysis Index 17
--- NOTE | 2018-10-27 10:27 | Gastroenterology Progress Note ---
Addendum entered and electronically signed by LEO LIZ MD 10/27/18 15:12: I have personally interviewed and examined the patient. I agree with the above A/P. Will sign off; no further signs of bleeding. Continue current protonix (change to QD at discharge) and MVI. F/U in the clinic to recheck labs. Original Note: Assessment and Plan 1.GIB 2.melena 3.anemia -H/H 8.0/24.4-stable -continue to monitor H/H and transfuse as needed -no active signs of bleeding-melena resolved -etiology unclear- possible ulcer vs other -clinically, patient is stable w/o GI complaints. Tolerating diet. -no plans for EGD- will avoid unless absolutely necessary given cardiac risk -continue PPI -okay for cardiac ASA if needed but would avoid other blood thinners until hct>30 -continue supportive care -patient is okay to be d/c per GI standpoint on PPI with follow up in clinic in ~2 weeks -will sign off, please call if needed Subjective Date of service: 10/27/18 Principal diagnosis: GIB Interval history: Patient sitting up in bed this am eating breakfast w/o GI complaints. No active signs of bleeding overnight per pt/nursing. Objective - Constitutional Vitals: Temp Pulse Resp BP Pulse Ox 98.2 F 102 H 20 108/65 93 10/27/18 08:40 10/27/18 08:38 10/27/18 08:38 10/27/18 08:38 10/27/18 08:38 General appearance: no acute distress - Respiratory Respiratory: bilateral: diminished - Cardiovascular Rhythm: regular Heart Sounds: Present: S1 & S2 - Gastrointestinal General gastrointestinal: Present: soft, non-tender, non-distended, normal bowel sounds - Labs CBC & Chem 7: 10/27/18 08:46 10/27/18 08:46 Labs: Laboratory Results - last 24 hr 10/26/18 10/27/18 10/27/18 21:21 04:31 08:46 WBC 9.2 RBC 2.63 L Hgb 7.4 L 8.0 L Hct 22.3 L 24.4 L MCV 93 MCH 31 MCHC 33 RDW 14.8 Plt Count 189 209 Sodium Potassium Chloride Carbon Dioxide Anion Gap BUN Creatinine Estimated GFR BUN/Creatinine Ratio Glucose Calcium 10/27/18 08:46 WBC RBC Hgb Hct MCV MCH MCHC RDW Plt Count Sodium 139 Potassium 4.7 Chloride 104.2 Carbon Dioxide 28 Anion Gap 12 BUN 26 H Creatinine 1.1 Estimated GFR > 60 BUN/Creatinine Ratio 24 Glucose 90 Calcium 7.7 L
--- NOTE | 2018-10-27 14:43 | Progress Note ---
Assessment and Plan Acute hypoxemic respiratory failure. Acute congestive heart failure exacerbation. Possible pneumonia. Acute chronic obstructive pulmonary disease exacerbation. Non-ST elevation myocardial infarction. Acute kidney injury. Adult failure to thrive. Hypertension by history. Hyponatremia, moderate at presentation. Anemia that was normocytic at presentation Elevated serum transaminases. Elevated CPK - continue supplemental oxygen to keep O2 Sat's > 90% - continue bronchodilators with pulmonary hygiene per RT - aspiration precautions - US chest with small effusions and not a safe window for thoracentesis - continue ACS w/up per cardiology - continue ICS (pulmicort) - medical management for CHF per cardiology - complete empiric AB's course - anti-platelet therapy (on ASA & s/p IV heparin) - continue megace - nutrition consult for adult FTT - follow I's & O's - PT/OT as tolerated - RN/[employer] to assist with feeding - GI prophylaxis - Flu & pneumovax addressed per protocol - awaiting placement also - continue other care per attending / other consultants .... re-evaluate in am & prn Subjective Date of service: 10/27/18 Principal diagnosis: Acute hypoxemic Resp failure; Acute CHF exacerbation; AE- COPD; NSTEMI Interval history: Patient is seen today for: Acute hypoxemic respiratory failure; Acute congestive heart failure exacerbation; Possible pneumonia; Acute chronic obstructive pulmonary disease exacerbation; Non-ST elevation myocardial infarction. Seen and examined at bedside; 24hour events reviewed; nursing and respiratory care staff consulted; no adverse overnight events reported to me; sister visiting; he is resting peacefully in bed; remains on supplemental oxyge; denies acute chest pains or palpitations; per sister she had to feed him as he was unable to feed himself Objective Vital Signs - 12hr 10/27/18 10/27/18 10/27/18 04:01 04:43 08:38 Temperature 98.8 F 98.0 F Pulse Rate 95 H 96 H 102 H Pulse Rate [ Anterior Bilateral Throughout] Respiratory 18 20 Rate Respiratory Rate [Anterior Bilateral Throughout] Blood Pressure 96/51 123/62 108/65 Blood Pressure [Left] O2 Sat by Pulse 96 89 93 Oximetry 10/27/18 10/27/18 10/27/18 08:39 08:40 08:49 Temperature 98.2 F Pulse Rate Pulse Rate [ 98 H 104 H Anterior Bilateral Throughout] Respiratory Rate Respiratory 20 20 Rate [Anterior Bilateral Throughout] Blood Pressure Blood Pressure [Left] O2 Sat by Pulse 98 Oximetry 10/27/18 10/27/18 10/27/18 12:37 12:38 12:42 Temperature 98.4 F 98.4 F Pulse Rate 111 H 108 H Pulse Rate [ Anterior Bilateral Throughout] Respiratory 20 Rate Respiratory Rate [Anterior Bilateral Throughout] Blood Pressure 72/39 Blood Pressure 80/39 [Left] O2 Sat by Pulse 95 97 Oximetry Constitutional: no acute distress, alert, other (elderly looking AAM, normocephalic and atraumatic with mildly increased respiratory effort at rest) Eyes: non-icteric ENT: oropharynx moist, other (poor oral hygiene) Neck: supple, no lymphadenopathy, JVD, other (no thyromegaly) Effort: mildly labored Ascultation: Bilateral: diminished breath sounds, rhonchi Percussion: Bilateral: not dull Cardiovascular: regular rate and rhythm, murmur noted (systolic) Gastrointestinal: normoactive bowel sounds, soft, non-tender, non-distended Integumentary: other (poor turgor) Extremities: no cyanosis, no edema, pink and warm, pulses normal, no ischemia or petechiae Neurologic: normal mental status, non-focal exam (grossly), pupils equal and round, CN II-XII normal Psychiatric: mood appropriate, affect normal CBC and BMP: 10/28/18 13:05 10/27/18 08:46 ABG, PT/INR, D-dimer: PT/INR, D-dimer PT 16.0 Sec. (12.2-14.9) H 10/19/18 19:57 INR 1.24 (0.87-1.13) H 10/19/18 19:57 Abnormal lab findings: Abnormal Labs 10/19/18 10/19/18 10/19/18 04:34 04:34 04:34 RBC 3.60 L Hgb 11.3 L Hct 33.9 L MCV Lymph % (Auto) 10.6 L [place] % (Auto) 11.7 H Lymph # 0.6 L Seg Neutrophils % 77.5 H PT INR APTT 23.0 L Heparin Anti-Xa Level Sodium 126 L Potassium Chloride 92.1 L Carbon Dioxide 20 L BUN 35 H Glucose POC Glucose Calcium Magnesium Iron TIBC AST 67 H ALT 77 H Total Creatine Kinase 1300 H CK-MB (CK-2) 15.7 H Troponin T 0.175 H* Total Protein 5.7 L Albumin 3.3 L HDL Cholesterol 60 H Folate Free T4 Crossmatch 10/19/18 10/19/18 10/19/18 13:45 18:23 19:57 RBC Hgb 10.6 L Hct 31.2 L MCV Lymph % (Auto) [place] % (Auto) Lymph # Seg Neutrophils % PT INR APTT Heparin Anti-Xa Level Sodium Potassium Chloride Carbon Dioxide BUN Glucose POC Glucose Calcium Magnesium Iron TIBC AST ALT Total Creatine Kinase 881 H 707 H CK-MB (CK-2) 10.6 H 8.7 H Troponin T 0.175 H* 0.198 H* Total Protein Albumin HDL Cholesterol Folate Free T4 Crossmatch 10/19/18 10/20/18 10/20/18 19:57 04:54 04:54 RBC 3.30 L Hgb 10.4 L Hct 30.9 L MCV Lymph % (Auto) [place] % (Auto) 12.0 H Lymph # 0.7 L Seg Neutrophils % 72.8 H PT 16.0 H INR 1.24 H APTT Heparin Anti-Xa Level Sodium 127 L Potassium Chloride 97.7 L Carbon Dioxide 21 L BUN 25 H Glucose 102 H POC Glucose Calcium 7.6 L Magnesium Iron TIBC AST 41 H ALT 57 H Total Creatine Kinase 520 H CK-MB (CK-2) Troponin T Total Protein 4.8 L Albumin 2.7 L HDL Cholesterol Folate Free T4 Crossmatch 10/20/18 10/20/18 10/20/18 04:54 06:38 13:07 RBC Hgb Hct MCV Lymph % (Auto) [place] % (Auto) Lymph # Seg Neutrophils % PT INR APTT Heparin Anti-Xa Level 0.16 L 0.27 L Sodium Potassium Chloride Carbon Dioxide BUN Glucose POC Glucose 145 H Calcium Magnesium Iron TIBC AST ALT Total Creatine Kinase CK-MB (CK-2) Troponin T Total Protein Albumin HDL Cholesterol Folate Free T4 Crossmatch 10/20/18 10/20/18 10/21/18 13:07 13:07 04:08 RBC Hgb 9.6 L Hct 28.7 L MCV Lymph % (Auto) [place] % (Auto) Lymph # Seg Neutrophils % PT INR APTT Heparin Anti-Xa Level Sodium Potassium Chloride Carbon Dioxide BUN Glucose POC Glucose Calcium Magnesium 2.40 H Iron TIBC AST ALT Total Creatine Kinase CK-MB (CK-2) Troponin T Total Protein Albumin HDL Cholesterol Folate Free T4 1.68 H Crossmatch 10/22/18 10/22/18 10/22/18 04:40 04:40 19:57 RBC 2.52 L Hgb 7.9 L Hct 24.0 L MCV 95 H Lymph % (Auto) [place] % (Auto) 11.1 H Lymph # 1.0 L Seg Neutrophils % 70.7 H PT INR APTT Heparin Anti-Xa Level Sodium 135 L D Potassium Chloride Carbon Dioxide BUN 47 H Glucose POC Glucose Calcium 7.9 L Magnesium Iron 13 L TIBC 233 L AST ALT Total Creatine Kinase CK-MB (CK-2) Troponin T Total Protein Albumin HDL Cholesterol Folate Free T4 Crossmatch 10/22/18 10/23/18 10/24/18 19:57 06:02 11:14 RBC 2.15 L Hgb 7.4 L 6.7 L Hct 22.6 L 20.5 L MCV 95 H Lymph % (Auto) [place] % (Auto) Lymph # Seg Neutrophils % PT INR APTT Heparin Anti-Xa Level Sodium Potassium Chloride Carbon Dioxide BUN Glucose POC Glucose Calcium Magnesium Iron TIBC AST ALT Total Creatine Kinase CK-MB (CK-2) Troponin T Total Protein Albumin HDL Cholesterol Folate 6.57 L Free T4 Crossmatch 10/24/18 10/24/18 10/25/18 11:14 15:30 05:58 RBC Hgb 8.4 L Hct 25.4 L MCV Lymph % (Auto) [place] % (Auto) Lymph # Seg Neutrophils % PT INR APTT Heparin Anti-Xa Level Sodium 136 L Potassium Chloride Carbon Dioxide BUN 30 H Glucose 127 H POC Glucose Calcium 8.1 L Magnesium Iron TIBC AST ALT Total Creatine Kinase CK-MB (CK-2) Troponin T Total Protein Albumin HDL Cholesterol Folate Free T4 Crossmatch See Detail 10/26/18 10/26/18 10/26/18 05:17 05:17 21:21 RBC 2.79 L Hgb 8.6 L 7.4 L Hct 26.3 L 22.3 L MCV Lymph % (Auto) 7.3 L [place] % (Auto) Lymph # 0.6 L Seg Neutrophils % 86.8 H PT INR APTT Heparin Anti-Xa Level Sodium Potassium 5.1 H Chloride Carbon Dioxide BUN 21 H Glucose 108 H POC Glucose Calcium 8.1 L Magnesium Iron TIBC AST ALT Total Creatine Kinase CK-MB (CK-2) Troponin T Total Protein Albumin HDL Cholesterol Folate Free T4 Crossmatch 10/27/18 10/27/18 08:46 08:46 RBC 2.63 L Hgb 8.0 L Hct 24.4 L MCV Lymph % (Auto) [place] % (Auto) Lymph # Seg Neutrophils % PT INR APTT Heparin Anti-Xa Level Sodium Potassium Chloride Carbon Dioxide BUN 26 H Glucose POC Glucose Calcium 7.7 L Magnesium Iron TIBC AST ALT Total Creatine Kinase CK-MB (CK-2) Troponin T Total Protein Albumin HDL Cholesterol Folate Free T4 Crossmatch Allied health notes reviewed: nursing
--- NOTE | 2018-10-27 15:26 | Progress Note ---
Assessment and Plan /Acute GI bleed with anemia - consulted GI, stopped all heparin.aspirin, - s/p protonix drip, transfused one unit of PRBC - monitor H/H, no plans for EGD- unless absolutely necessary given cardiac risk - cont PPI / Acute respiratory failure, present on admission Likely due to underlying COPD and acute CHF Continue to treat underlying medical condition, wean off oxygen as tolerated / NSTEMI (non-ST elevated myocardial infarction) Likely due to new onset CHF, cardiology consulted 2-D echo showed EF of 15-20%, continue statin, hold Lasix for now Status post heparin drip for 48 hours, cardiology recommended conservative management /New onset CHF with EF 15-20% - cardiology consulted - s/p diuresis, cont supplemental oxygen, supportive care /COPD with acute exacerbation Continue duo nebs, supplemental oxygen, treated for underlying pneumonia /Hyponatremia closely monitor electrolytes, off IV now /folate deficiency, replace folate / RLL pneumonia Possible aspiration pneumonia, continue oxygen, IV antibiotics and follow cultures Supportive care /Severe malnutrition Nutrition supplements, and nutrition consulted / Rhabdomyolysis Probably secondary to fall and status post gentle IV hydration, closely monitor renal function and avoid nephrotoxins / Thrombocytopenia Probably secondary to history of prostate cancer, closely monitor /Recurrent falls Fall precautions, physical therapy occupational therapy rehabilitation / Discharge planning issues Possible acute versus subacute versus SNF placement when medically stable / DVT prophylaxis SCD Disposition: FAMILY REQUESTED SNF, CM consulted, Now waiting on placement. Physical exam: General appearance: Present: mild distress, cachectic, disheveled - EENT Eyes: Present: PERRL, EOM intact - Neck Neck: Present: supple, normal ROM - Respiratory Respiratory effort: normal Respiratory: right: rhonchi, bilateral: diminished, negative: rales, wheezing - Cardiovascular Rhythm: regular Heart Sounds: Present: S1 & S2 - Extremities Extremities: no ischemia Extremity abnormal: edema - Abdominal General gastrointestinal: Present: soft, non-tender, non-distended, normal bowel sounds - Integumentary Integumentary: Present: clear, warm - Musculoskeletal Musculoskeletal: strength equal bilaterally, generalized weakness - Psychiatric Psychiatric: appropriate mood/affect, cooperative - Neurologic Neurologic: moves all extremities, other Subjective Date of service: 10/27/18 Principal diagnosis: Acute hypoxemic Resp failure; Acute CHF exacerbation; AE- COPD; NSTEMI Interval history: Patient seen and examined. Medical records and medication list reviewed. No acute event overnight noted by the RN. H/h stable after transfusion, no further active bleeding Discussed plan of care at bedside with patient and his sister, waiting on placement Objective - Constitutional Vitals: Vital Signs - 12hr 10/27/18 10/27/18 10/27/18 04:01 04:43 08:38 Temperature 98.8 F 98.0 F Pulse Rate 95 H 96 H 102 H Pulse Rate [ Anterior Bilateral Throughout] Respiratory 18 20 Rate Respiratory Rate [Anterior Bilateral Throughout] Blood Pressure 96/51 123/62 108/65 Blood Pressure [Left] O2 Sat by Pulse 96 89 93 Oximetry 10/27/18 10/27/18 10/27/18 08:39 08:40 08:49 Temperature 98.2 F Pulse Rate Pulse Rate [ 98 H 104 H Anterior Bilateral Throughout] Respiratory Rate Respiratory 20 20 Rate [Anterior Bilateral Throughout] Blood Pressure Blood Pressure [Left] O2 Sat by Pulse 98 Oximetry 10/27/18 10/27/18 10/27/18 12:37 12:38 12:42 Temperature 98.4 F 98.4 F Pulse Rate 111 H 108 H Pulse Rate [ Anterior Bilateral Throughout] Respiratory 20 Rate Respiratory Rate [Anterior Bilateral Throughout] Blood Pressure 72/39 Blood Pressure 80/39 [Left] O2 Sat by Pulse 95 97 Oximetry - Labs CBC & Chem 7: 10/28/18 13:05 10/27/18 08:46 Labs: Abnormal lab results 10/26/18 10/27/18 10/27/18 Range/Units 21:21 08:46 08:46 RBC 2.63 L (3.65-5.03) M/mm3 Hgb 7.4 L 8.0 L (11.8-15.2) gm/dl Hct 22.3 L 24.4 L (35.5-45.6) % BUN 26 H (9-20) mg/dL Calcium 7.7 L (8.4-10.2) mg/dL
[2018-10-28] MEDS: DUONEB *Not for PRN Use IH SCH ×3 (02:41→14:21)
[2018-10-28] MEDS: PULMICORT IH SCH (09:13)
[2018-10-28] MEDS: BROVANA NEBU IH SCH (09:13)
[2018-10-28] MEDS: FLOMAX PO SCH (09:21)
[2018-10-28] MEDS: THERAGRAN Tab PO SCH (09:21)
[2018-10-28] MEDS: FOLVITE PO SCH (09:21)
[2018-10-28] MEDS: ZESTRIL PO SCH (09:21)
[2018-10-28] MEDS: DELTASONE PO SCH (09:21)
[2018-10-28] MEDS: PROTONIX PO SCH (09:21)
[2018-10-28] MEDS: PROSCAR PO SCH (09:22)
[2018-10-28] MEDS: MEGACE PO SCH (09:22)
[2018-10-28 09:47] VITALS: BP 122/56
[2018-10-28 13:47] LABS: Hematocrit 23.1 % (35.5-45.6); Hemoglobin 7.5 gm/dl (11.8-15.2)
--- NOTE | 2018-10-28 13:58 | Progress Note ---
Assessment and Plan Acute hypoxemic respiratory failure. Acute congestive heart failure exacerbation. Possible pneumonia. Acute chronic obstructive pulmonary disease exacerbation. Non-ST elevation myocardial infarction. Acute kidney injury. Adult failure to thrive. Hypertension by history. Hyponatremia, moderate at presentation. Anemia that was normocytic at presentation Elevated serum transaminases. Elevated CPK - continue supplemental oxygen to keep O2 Sat's > 90% - continue bronchodilators with pulmonary hygiene per RT - aspiration precautions - US chest with small effusions and not a safe window for thoracentesis - continue ACS w/up per cardiology - continue ICS (pulmicort) - medical management for CHF per cardiology - complete empiric AB's course - anti-platelet therapy (on ASA & s/p IV heparin) - continue megace - nutrition consult for adult FTT - follow I's & O's - PT/OT as tolerated - RN/RFID ENGINEER to assist with feeding - GI prophylaxis - Flu & pneumovax addressed per protocol - awaiting placement also - continue other care per attending / other consultants .... re-evaluate in am & prn Subjective Date of service: 10/28/18 Principal diagnosis: Acute hypoxemic Resp failure; Acute CHF exacerbation; AE- COPD; NSTEMI Interval history: Patient is seen today for: Acute hypoxemic respiratory failure; Acute congestive heart failure exacerbation; Possible pneumonia; Acute chronic obstructive pulmonary disease exacerbation; Non-ST elevation myocardial infarction. Seen and examined at bedside; 24hour events reviewed; nursing and respiratory care staff consulted; no adverse overnight events reported to me; Objective Vital Signs - 12hr 10/28/18 10/28/18 10/28/18 03:56 09:13 09:26 Temperature 98.0 F Pulse Rate Pulse Rate [ 111 H 115 H Anterior Bilateral Throughout] Respiratory 18 Rate Respiratory 18 18 Rate [Anterior Bilateral Throughout] Blood Pressure 119/63 O2 Sat by Pulse Oximetry 10/28/18 10/28/18 09:46 10:00 Temperature 97.9 F Pulse Rate 120 H Pulse Rate [ Anterior Bilateral Throughout] Respiratory 18 Rate Respiratory Rate [Anterior Bilateral Throughout] Blood Pressure 122/56 O2 Sat by Pulse 90 98 Oximetry Constitutional: no acute distress, alert, other (elderly looking AAM, normocephalic and atraumatic with mildly increased respiratory effort at rest) Eyes: non-icteric ENT: oropharynx moist, other (poor oral hygiene) Neck: supple, no lymphadenopathy, JVD, other (no thyromegaly) Effort: mildly labored Ascultation: Bilateral: diminished breath sounds, rhonchi Percussion: Bilateral: not dull Cardiovascular: regular rate and rhythm, murmur noted (systolic) Gastrointestinal: normoactive bowel sounds, soft, non-tender, non-distended Integumentary: other (poor turgor) Extremities: no cyanosis, no edema, pink and warm, pulses normal, no ischemia or petechiae Neurologic: normal mental status, non-focal exam (grossly), pupils equal and round, CN II-XII normal Psychiatric: mood appropriate, affect normal CBC and BMP: 10/28/18 13:05 10/27/18 08:46 ABG, PT/INR, D-dimer: PT/INR, D-dimer PT 16.0 Sec. (12.2-14.9) H 10/19/18 19:57 INR 1.24 (0.87-1.13) H 10/19/18 19:57 Abnormal lab findings: Abnormal Labs 10/19/18 10/19/18 10/19/18 04:34 04:34 04:34 RBC 3.60 L Hgb 11.3 L Hct 33.9 L MCV Lymph % (Auto) 10.6 L [place] % (Auto) 11.7 H Lymph # 0.6 L Seg Neutrophils % 77.5 H PT INR APTT 23.0 L Heparin Anti-Xa Level Sodium 126 L Potassium Chloride 92.1 L Carbon Dioxide 20 L BUN 35 H Glucose POC Glucose Calcium Magnesium Iron TIBC AST 67 H ALT 77 H Total Creatine Kinase 1300 H CK-MB (CK-2) 15.7 H Troponin T 0.175 H* Total Protein 5.7 L Albumin 3.3 L HDL Cholesterol 60 H Folate Free T4 Crossmatch 10/19/18 10/19/18 10/19/18 13:45 18:23 19:57 RBC Hgb 10.6 L Hct 31.2 L MCV Lymph % (Auto) [place] % (Auto) Lymph # Seg Neutrophils % PT INR APTT Heparin Anti-Xa Level Sodium Potassium Chloride Carbon Dioxide BUN Glucose POC Glucose Calcium Magnesium Iron TIBC AST ALT Total Creatine Kinase 881 H 707 H CK-MB (CK-2) 10.6 H 8.7 H Troponin T 0.175 H* 0.198 H* Total Protein Albumin HDL Cholesterol Folate Free T4 Crossmatch 10/19/18 10/20/18 10/20/18 19:57 04:54 04:54 RBC 3.30 L Hgb 10.4 L Hct 30.9 L MCV Lymph % (Auto) [place] % (Auto) 12.0 H Lymph # 0.7 L Seg Neutrophils % 72.8 H PT 16.0 H INR 1.24 H APTT Heparin Anti-Xa Level Sodium 127 L Potassium Chloride 97.7 L Carbon Dioxide 21 L BUN 25 H Glucose 102 H POC Glucose Calcium 7.6 L Magnesium Iron TIBC AST 41 H ALT 57 H Total Creatine Kinase 520 H CK-MB (CK-2) Troponin T Total Protein 4.8 L Albumin 2.7 L HDL Cholesterol Folate Free T4 Crossmatch 10/20/18 10/20/18 10/20/18 04:54 06:38 13:07 RBC Hgb Hct MCV Lymph % (Auto) [place] % (Auto) Lymph # Seg Neutrophils % PT INR APTT Heparin Anti-Xa Level 0.16 L 0.27 L Sodium Potassium Chloride Carbon Dioxide BUN Glucose POC Glucose 145 H Calcium Magnesium Iron TIBC AST ALT Total Creatine Kinase CK-MB (CK-2) Troponin T Total Protein Albumin HDL Cholesterol Folate Free T4 Crossmatch 10/20/18 10/20/18 10/21/18 13:07 13:07 04:08 RBC Hgb 9.6 L Hct 28.7 L MCV Lymph % (Auto) [place] % (Auto) Lymph # Seg Neutrophils % PT INR APTT Heparin Anti-Xa Level Sodium Potassium Chloride Carbon Dioxide BUN Glucose POC Glucose Calcium Magnesium 2.40 H Iron TIBC AST ALT Total Creatine Kinase CK-MB (CK-2) Troponin T Total Protein Albumin HDL Cholesterol Folate Free T4 1.68 H Crossmatch 10/22/18 10/22/18 10/22/18 04:40 04:40 19:57 RBC 2.52 L Hgb 7.9 L Hct 24.0 L MCV 95 H Lymph % (Auto) [place] % (Auto) 11.1 H Lymph # 1.0 L Seg Neutrophils % 70.7 H PT INR APTT Heparin Anti-Xa Level Sodium 135 L D Potassium Chloride Carbon Dioxide BUN 47 H Glucose POC Glucose Calcium 7.9 L Magnesium Iron 13 L TIBC 233 L AST ALT Total Creatine Kinase CK-MB (CK-2) Troponin T Total Protein Albumin HDL Cholesterol Folate Free T4 Crossmatch 10/22/18 10/23/18 10/24/18 19:57 06:02 11:14 RBC 2.15 L Hgb 7.4 L 6.7 L Hct 22.6 L 20.5 L MCV 95 H Lymph % (Auto) [place] % (Auto) Lymph # Seg Neutrophils % PT INR APTT Heparin Anti-Xa Level Sodium Potassium Chloride Carbon Dioxide BUN Glucose POC Glucose Calcium Magnesium Iron TIBC AST ALT Total Creatine Kinase CK-MB (CK-2) Troponin T Total Protein Albumin HDL Cholesterol Folate 6.57 L Free T4 Crossmatch 10/24/18 10/24/18 10/25/18 11:14 15:30 05:58 RBC Hgb 8.4 L Hct 25.4 L MCV Lymph % (Auto) [place] % (Auto) Lymph # Seg Neutrophils % PT INR APTT Heparin Anti-Xa Level Sodium 136 L Potassium Chloride Carbon Dioxide BUN 30 H Glucose 127 H POC Glucose Calcium 8.1 L Magnesium Iron TIBC AST ALT Total Creatine Kinase CK-MB (CK-2) Troponin T Total Protein Albumin HDL Cholesterol Folate Free T4 Crossmatch See Detail 10/26/18 10/26/18 10/26/18 05:17 05:17 21:21 RBC 2.79 L Hgb 8.6 L 7.4 L Hct 26.3 L 22.3 L MCV Lymph % (Auto) 7.3 L [place] % (Auto) Lymph # 0.6 L Seg Neutrophils % 86.8 H PT INR APTT Heparin Anti-Xa Level Sodium Potassium 5.1 H Chloride Carbon Dioxide BUN 21 H Glucose 108 H POC Glucose Calcium 8.1 L Magnesium Iron TIBC AST ALT Total Creatine Kinase CK-MB (CK-2) Troponin T Total Protein Albumin HDL Cholesterol Folate Free T4 Crossmatch 10/27/18 10/27/18 10/28/18 08:46 08:46 13:05 RBC 2.63 L Hgb 8.0 L 7.5 L Hct 24.4 L 23.1 L MCV Lymph % (Auto) [place] % (Auto) Lymph # Seg Neutrophils % PT INR APTT Heparin Anti-Xa Level Sodium Potassium Chloride Carbon Dioxide BUN 26 H Glucose POC Glucose Calcium 7.7 L Magnesium Iron TIBC AST ALT Total Creatine Kinase CK-MB (CK-2) Troponin T Total Protein Albumin HDL Cholesterol Folate Free T4 Crossmatch Allied health notes reviewed: nursing
--- NOTE | 2018-10-28 14:02 | Discharge Summary ---
Providers - Providers Date of Admission: 10/19/18 06:43 Date of discharge: 10/28/18 Attending physician: YULISSA ALONZO 10/20/18 13:41 Physical Therapy Evaluation and Treat [CONS] Routine Comment: Reason For Exam: placement 10/21/18 15:34 Consult to Physician [CONS] Routine Comment: Consulting Provider: JUSTINE SALAZAR Physician Instructions: Reason For Exam: acute respiratory failure 10/22/18 09:58 Speech Therapy Evaluation and Treat [CONS] Routine Reason For Exam: trouble swallowing 10/24/18 13:37 Consult to Physician [CONS] Routine Comment: Consulting Provider: LEO LIZ Physician Instructions: Reason For Exam: GI bleed Primary care physician: GENERAL TELLER Hospitalization Condition: Stable Pertinent studies: CXR Chest US 2d echo 1 unit PRBC transfusion Hospital course: 78-year-old male patient with significant past medical history of COPD , prostate cancer, BPH, mal nourishment, gen weakness, recurrent falls at home came to ER for generalized weakness and difficulty breathing. He was tretaed for aspiration PNA, COPD, new onset CHF, NSTEMI. Placed on heparin drip following admission then held for anemia with possible GI bleed. Cardiology and GI consulted and they recommended medical MX conservatively and outpt followup. Patient was then discharged to SNF in stable condition. Discharge diagnosis and management; / Acute respiratory failure, present on admission Likely due to underlying COPD and acute CHF treated for underlying medical condition, wean off oxygen as tolerated / NSTEMI (non-ST elevated myocardial infarction) Likely due to new onset CHF, cardiology consulted 2-D echo showed EF of 15-20%, continue statin. Aspirin held for possible GI bleed Status post heparin drip for 48 hours, cardiology recommended conservative management /Acute GI bleed with anemia - consulted GI, stopped all heparin.aspirin, - s/p protonix drip, transfused one unit of PRBC - monitor H/H, no plans for EGD- unless absolutely necessary given cardiac risk - will cont PPI outpt and outpt f/u with GI /New onset CHF with EF 15-20% - cardiology consulted - s/p diuresis, supplemental oxygen, supportive care - further f/u outpt /COPD with acute exacerbation Placed on duo nebs, supplemental oxygen, treated for underlying pneumonia /Hyponatremia closely monitored electrolytes, improved /folate deficiency, replaced folate / RLL pneumonia Possible aspiration pneumonia, treated with oxygen, IV antibiotics and followed cultures Supportive care /Severe malnutrition Given Nutrition supplements, and nutrition consulted / Rhabdomyolysis, improved Probably secondary to fall and status post gentle IV hydration, closely monitored renal function and avoided nephrotoxins / Thrombocytopenia Probably secondary to history of prostate cancer, closely monitored /Recurrent falls Fall precautions, consulted physical therapy occupational therapy rehabilitation / DVT prophylaxis SCD Physical exam: General appearance: Present: mild distress, cachectic, disheveled - EENT Eyes: Present: PERRL, EOM intact - Neck Neck: Present: supple, normal ROM - Respiratory Respiratory effort: normal Respiratory: right: rhonchi, bilateral: diminished, negative: rales, wheezing - Cardiovascular Rhythm: regular Heart Sounds: Present: S1 & S2 - Extremities Extremities: no ischemia Extremity abnormal: edema - Abdominal General gastrointestinal: Present: soft, non-tender, non-distended, normal bowel sounds - Integumentary Integumentary: Present: clear, warm - Musculoskeletal Musculoskeletal: strength equal bilaterally, generalized weakness - Psychiatric Psychiatric: appropriate mood/affect, cooperative - Neurologic Neurologic: moves all extremities, other Disposition: [id number]/[place]-[facility] Time spent for discharge: 34 minutes Core Measure Documentation - Palliative Care Palliative Care/ Comfort Measures: Not Applicable - Core Measures Any of the following diagnoses?: none Exam - Constitutional Vitals: Temp Pulse Resp BP Pulse Ox 97.9 F 120 H 18 122/56 98 10/28/18 09:46 10/28/18 09:46 10/28/18 09:46 10/28/18 09:46 10/28/18 10:00 Plan Activity: fall precautions Weight Bearing Status: Non-Weight Bearing Diet: low cholesterol Special Instructions: restrict fluid intake to (1.2L/day) Additional Instructions: repeat CBC in one week Follow up with: PRIMARY CAREMD [Primary Care Provider] - 3-5 Days
== END 2018-10-28 17:14 | DRG 177 ==
LOC: ED 03:02 → 4A 06:43
PROVIDERS: ADMIT Internal Medicine; ATTEND Internal Medicine
PROC: 30233N1 Transfusion of Nonautologous Red Blood Cells into Peripheral Vein, Percutaneous Approach (ICD-10-PCS; principal; 2018-10-24)
DX: J69.0 Pneumonitis due to inhalation of food and vomit (principal); E43 Unspecified severe protein-calorie malnutrition; J96.01 Acute respiratory failure with hypoxia; I21.4 Non-ST elevation (NSTEMI) myocardial infarction; Z68.1 Body mass index [BMI] 19.9 or less, adult; E87.1 Hypo-osmolality and hyponatremia; N17.9 Acute kidney failure, unspecified; K92.1 Melena; I47.2 Ventricular tachycardia; J44.1 Chronic obstructive pulmonary disease with (acute) exacerbation; R74.8 Abnormal levels of other serum enzymes; D69.6 Thrombocytopenia, unspecified; C61 Malignant neoplasm of prostate; T79.6XXA Traumatic ischemia of muscle, initial encounter; X58.XXXA Exposure to other specified factors, initial encounter; N18.9 Chronic kidney disease, unspecified; E53.8 Deficiency of other specified B group vitamins; R29.6 Repeated falls; R62.7 Adult failure to thrive; I50.9 Heart failure, unspecified; N40.0 Benign prostatic hyperplasia without lower urinary tract symptoms; Z82.49 Family history of ischemic heart disease and other diseases of the circulatory system; Z87.891 Personal history of nicotine dependence
CPT/HCPCS: 36415; 70450; 71045; 71046; 76604; 80048; 80053; 80061; 80307; 81001; 82140; 82270; 82550; 82553; 82607; 82747; 82962; 83550; 83735; 84439; 84443; 84484; 85014; 85018; 85025; 85027; 85049; 85520; 85610; 85730; 86140; 86850; 86900; 86901; 86920; 87040; 93005; 93010; 93306; 94640; 94760; 96365; 96367; G0378; A9270-GY; C9113; G8978-GP; G8979-GP; J0295; J0456; J0696; J1644; J1940; J1956; J3475; J7030; J7040; J7050; J7512; P9016